=== PATIENT | female | born 1965 | race Caucasian/White ===

== ENCOUNTER 2017-01-14 19:55 | Emergency (ER) | payer MEDICAID ==
[~2017-01-14] VITALS: Ht 157.5 cm; Wt 51.3 kg
--- NOTE | 2017-01-14 20:32 | NUR ---
PT TO ER BED 12. C/O LT FLANK PAIN W/ DYSURIA AND URGENCY THAT STARTED THIS AM. GOWNED AND PLACED ON MONITOR. STABLE VS. AWAITING MD DICKSON.
--- NOTE | 2017-01-14 20:36 | NUR ---
DR STRAUSS AT BEDSIDE FOR EVAL.
[2017-01-14 20:54] LABS: APPEARANCE,URINE Clear (CLEAR); BILIRUBIN,URINE Negative (NEGATIVE); BLOOD, URINE Trace-intact Ery/uL (NEGATIVE); COLOR,URINE Yellow (YELLOW); KETONES,URINE Negative (NEGATIVE); LEUKOCYTE ESTERASE ,URINE Moderate (NEGATIVE); NITRITE, URINE Negative (NEGATIVE); PH,URINE 6.5 (5.0-8.0); PROTEIN,URINE Negative (NEGATIVE); UGLUCOSE Negative (NEGATIVE); UROBILINOGEN,URINE 0.2 EU/dL (0.2)
[2017-01-14] MEDS ORDERED: KETOROLAC TROMETHAMINE INJ 30 MG/ML VIAL IV ONE (21:00)
[2017-01-14 21:09] LABS: BASOPHILS % (AUTO) 0.5 % (0.0-2.0); EOSINOPHILS # (AUTO) 0.2 /CMM (0.0-0.7); EOSINOPHILS % (AUTO) 2.7 % (0.0-6.0); HEMATOCRIT 40 % (33-45); HEMOGLOBIN 13.5 g/dL (11.5-14.8); LYMPHOCYTES # (AUTO) 1.6 /CMM (0.8-4.8); LYMPHOCYTES % (AUTO) 28.7 % (20.0-44.0); MEAN CORPUSCULAR HEMOGLOBIN 29 PG (26.0-33.0); MEAN CORPUSCULAR HGB CONC 34 g/dl (31.0-36.0); MEAN CORPUSCULAR VOLUME 86 fL (82-100); MONOCYTES # (AUTO) 0.7 /CMM (0.1-1.30); NEUTROPHILS # (AUTO) 3.2 /CMM (1.8-8.9); NEUTROPHILS % (AUTO) 56.1 % (43.0-81.0); PLATELET COUNT (AUTO) 252 /CMM (150-450); RDW COEFFICIENT OF VARIATION 12.5 (11.5-15.0); WHITE BLOOD COUNT (AUTO) 5.7 K/uL (4.3-11.0)
[2017-01-14] MEDS ORDERED: KETOROLAC TROMETHAMINE INJ 30 MG/ML VIAL ONE (21:09)
--- NOTE | 2017-01-14 21:10 | NUR ---
PT TO RADIOLOGY FOR ABDOMINAL CT SCAN VIA WHEELCHAIR.
[2017-01-14 21:15] LABS: ADD URINE CULTURE YES; BACTERIA,URINE Few /HPF (None Seen); SQUAMOUS EPITHELIAL CELL,UR Few /HPF (None Seen)
[2017-01-14 21:16] LABS: CALCIUM, SERUM 9.2 mg/dL (8.5-10.1); CREATININE 0.7 mg/dL (0.6-1.3); POTASSIUM 4.1 mmol/L (3.5-5.1)
[2017-01-14 21:23] LABS: ALBUMIN 3.9 g/dL (3.4-5.0); BILIRUBIN,DIRECT 0.1 mg/dL (0.0-0.2); BILIRUBIN,TOTAL 0.4 mg/dL (0.2-1.0); TOTAL PROTEIN, SERUM 6.4 g/dL (6.4-8.2)
--- NOTE | 2017-01-14 22:10 | NUR ---
Patient discharged to home in stable condition. Written and verbal after care instructions given. Patient verbalizes understanding of instruction.IV removed. Catheter intact and site benign. Pressure and 4x4 applied to site. No bleeding noted.
[2017-01-14 22:11] VITALS: BP 121/77
== END 2017-01-14 22:12 | disposition home or self-care (01) ==
LOC: ER 19:57
DX: N23 Unspecified renal colic (principal); N39.0 Urinary tract infection, site not specified; E11.9 Type 2 diabetes mellitus without complications; I48.91 Unspecified atrial fibrillation; Z85.42 Personal history of malignant neoplasm of other parts of uterus; Z90.710 Acquired absence of both cervix and uterus; Z96.641 Presence of right artificial hip joint; Z88.2 Allergy status to sulfonamides
CPT/HCPCS: 36415; 74176; 80048; 80076; 81001; 83690; 85025; 87086; 99285; A4606; J1885; Z7610; 81000-TC

== ENCOUNTER → 2017-05-27 | Emergency (ER) | payer MEDICAID ==
[~2017-05-27] VITALS: Ht 157.5 cm; Wt 54.4 kg
[2017-05-27 17:32] VITALS: BP 114/74
== END | disposition home or self-care (01) ==
LOC: ER 17:29
DX: S93.401A Sprain of unspecified ligament of right ankle, initial encounter (principal); E11.9 Type 2 diabetes mellitus without complications; G35 Multiple sclerosis; I48.91 Unspecified atrial fibrillation; M85.80 Other specified disorders of bone density and structure, unspecified site; Z85.89 Personal history of malignant neoplasm of other organs and systems; Z88.2 Allergy status to sulfonamides; W18.39XA Other fall on same level, initial encounter; Y93.89 Activity, other specified; Y92.89 Other specified places as the place of occurrence of the external cause; Y99.9 Unspecified external cause status
CPT/HCPCS: 73610-TC; A4606; Z7610

== ENCOUNTER 2017-05-29 19:31 | Emergency (ER) | payer MEDICAID ==
[~2017-05-29] VITALS: Ht 157.5 cm; Wt 63.5 kg
[2017-05-29 20:11] VITALS: BP 117/75
--- NOTE | 2017-05-29 21:27 | NUR ---
INFORMED BY ADMITIING "PT LEFT"
== END 2017-05-29 21:28 | disposition left against medical advice (07) ==
LOC: ER 19:36
DX: Z53.21 Procedure and treatment not carried out due to patient leaving prior to being seen by health care provider (principal)
CPT/HCPCS: A4606; Z7610

== ENCOUNTER 2020-03-30 22:33 | Emergency (ER) | payer MEDICAID ==
[~2020-03-30] VITALS: Ht 157.5 cm; Wt 63.5 kg
--- NOTE | 2020-03-30 22:45 | NUR ---
[facility] [phone]
--- NOTE | 2020-03-30 22:50 | NUR ---
PT BIBA TO THE ED C/O LOWER ABDOMINAL PAIN S/P TRANSURETHRAL RESECTION TODAY AT [facility]. PT AAOX4, VSS, RESPIRATIONS EVEN AND UNLABORED ON RA W/ NAD NOTED. -N/V. PT CONNECTED TO THE MONITOR AND POX
[2020-03-30] MEDS ORDERED: HYDROMORPHONE INJ 0.5 MG/0.5 ML SYRINGE IM ONE (23:00)
[2020-03-30] MEDS ORDERED: ONDANSETRON 4 MG TAB.RAPDIS PO ONE (23:00)
[2020-03-30] MEDS ORDERED: MORPHINE SULFATE INJ 4 MG/ML DISP.SYRIN ONE (23:12)
[2020-03-30] MEDS ORDERED: ONDANSETRON 4 MG TAB.RAPDIS ONE (23:12)
--- NOTE | 2020-03-30 23:17 | NUR ---
SUTTON CATHETER IN PLACE. 16 F. URINE OUTPUT:720 ML
[2020-03-30] MEDS ORDERED: MORPHINE SULFATE INJ 2 MG/ML DISP.SYRIN IM ONE (23:30)
--- NOTE | 2020-03-30 23:46 | NUR ---
URINE OUTPUT: 900 ML
[2020-03-30 23:52] LABS: APPEARANCE,URINE Clear (CLEAR); BILIRUBIN,URINE Negative (NEGATIVE); BLOOD, URINE Moderate Ery/uL (NEGATIVE); COLOR,URINE Yellow (YELLOW); KETONES,URINE Negative (NEGATIVE); LEUKOCYTE ESTERASE ,URINE Trace (NEGATIVE); NITRITE, URINE Negative (NEGATIVE); PH,URINE 7.5 (5.0-8.0); PROTEIN,URINE 100 mg/dl (NEGATIVE); UGLUCOSE Negative (NEGATIVE); UROBILINOGEN,URINE 0.2 EU/dL (0.2)
[2020-03-30 23:57] LABS: BACTERIA,URINE Few /HPF (None Seen); SQUAMOUS EPITHELIAL CELL,UR Few /HPF (None Seen)
[2020-03-31] MEDS ORDERED: ONDANSETRON 4 MG TAB.RAPDIS ONE (00:28)
[2020-03-31] MEDS ORDERED: ONDANSETRON 4 MG TAB.RAPDIS SL ONE (00:30)
--- NOTE | 2020-03-31 02:34 | NUR ---
Patient discharged to home in stable condition. Written and verbal after care instructions given. Patient verbalizes understanding of instruction.
[2020-03-31 02:35] VITALS: BP 121/87
== END 2020-03-31 02:35 | disposition home or self-care (01) ==
LOC: ER 22:37
DX: N39.0 Urinary tract infection, site not specified (principal); R33.9 Retention of urine, unspecified; G35 Multiple sclerosis; I48.91 Unspecified atrial fibrillation; E11.9 Type 2 diabetes mellitus without complications; Z98.890 Other specified postprocedural states; Z88.2 Allergy status to sulfonamides; Z85.51 Personal history of malignant neoplasm of bladder
CPT/HCPCS: 51702; 81001; 96372; 99284; J2270; Q0162 ×2; 81000-TC

== ENCOUNTER 2020-08-25 18:15 | Inpatient (IN) | payer MEDICAID ==
[~2020-08-25] VITALS: Ht 157.5 cm; Wt 117.9 kg
[~2020-08-25 18:15] MED LIST: ACET-868 PO; ACID1TAB12 PO; ASCO500T87 PO; ASPI-1169 PO; ATOR20TA PO; CALC-261 PO; CHOL200059 PO; CYAN500T66 PO; CYCL5TAB PO; DALF10TA PO; DOCU250C21 PO; GABA-534 PO; HYDR-4384 PO; MAGN400T8 PO; MEMA5TAB PO; MODA200T22 PO; OMEG10006 PO; RANI150T8 PO; VITA400C68 PO
--- NOTE | 2020-08-25 18:18 | NUR ---
[id number] from home, c/o weakness and L shoulder pain s/p glf 2 weeks ago, states "clavicular fracture" when she fell 2 weeks ago. to ER bed 9, hooked to cardiac BP cuff and POX, changed to hosp gown, warm blanket provided, patient AAO x 3, breathing even and unlabored, NAD noted. Dr Ozuna at bedside
--- NOTE | 2020-08-25 18:27 | NUR ---
pt [id number] from home to er bed 09 c/o weakness, L shoulder/clavicular pain since injuring herself and sustaining a clavicular fracture 2 weeks ago. since then she's been having frequent falls and is feeling not safe by herself. pt gowned and placed on monitor. stable vitals. awaiting md hopkins.
--- NOTE | 2020-08-25 18:27 | NUR ---
Note tonioone in EDM - 08/25/20 at 1913 by HORTENCIA [email or web address] from home, c/o weakness and L shoulder pain s/p glf 2 weeks ago, states "clavicular fracture" when she fell 2 weeks ago. to ER bed 9, hooked to cardiac BP cuff and POX, changed to hosp gown, warm blanket provided, patient AAO x 3, breathing even and unlabored, NAD noted. awaiting MD hopkins.
--- NOTE | 2020-08-25 18:28 | NUR ---
dr duff at bedside for eval.
[2020-08-25] MEDS ORDERED: IV NS 0.9% 500 ML BAG IV ONE (18:30)
[2020-08-25] MEDS ORDERED: CALC-1026 PO (18:38)
[2020-08-25] MEDS ORDERED: ASCO500C17 PO (18:38)
[2020-08-25] MEDS ORDERED: CHOL200013 PO (18:38)
[2020-08-25] MEDS ORDERED: SIMV10TA98 PO (18:38)
--- NOTE | 2020-08-25 19:04 | NUR ---
iv line started blood drawn and sent to lab.
[2020-08-25 19:26] LABS: EOSINOPHILS % (AUTO) 3.6 % (0.0-6.0); HEMATOCRIT 42 % (33-45); HEMOGLOBIN 13.5 g/dL (11.5-14.8); LYMPHOCYTES # (AUTO) 2.6 /CMM (0.8-4.8); LYMPHOCYTES % (AUTO) 32.4 % (20.0-44.0); MEAN CORPUSCULAR HGB CONC 32 g/dl (31.0-36.0); MEAN CORPUSCULAR VOLUME 87 fL (82-100); MONOCYTES # (AUTO) 0.7 /CMM (0.1-1.30); MONOCYTES % (AUTO) 8.8 % (2.0-12.0); NEUTROPHILS # (AUTO) 4.4 /CMM (1.8-8.9); NEUTROPHILS % (AUTO) 55.2 % (43.0-81.0); PLATELET COUNT (AUTO) 280 /CMM (150-450); RED BLOOD CELL COUNT(AUTO) 4.81 MIL/uL (4.0-5.2); WHITE BLOOD COUNT (AUTO) 7.9 K/uL (4.3-11.0)
--- NOTE | 2020-08-25 19:39 | NUR ---
CALLED LAB FOR COVID SWAB
[2020-08-25 19:44] LABS: ALANINE AMINOTRANSFERASE 44 U/L (12-78); ALBUMIN 3.3 g/dL (3.4-5.0); ALKALINE PHOSPHATASE 93 U/L (46-116); ASPARTATE AMINOTRANSFERASE 19 U/L (15-37); BILIRUBIN,DIRECT 0.1 mg/dL (0.0-0.2); BILIRUBIN,TOTAL 0.1 mg/dL (0.2-1.0); CALCIUM, SERUM 9.1 mg/dL (8.5-10.1); CARBON DIOXIDE 29 mmol/L (21-32); CHLORIDE 106 mmol/L (98-107); GLUCOSE 112 mg/dL (74-106); POTASSIUM 3.9 mmol/L (3.5-5.1); SODIUM SERUM 143 mmol/L (136-145)
[2020-08-25 19:49] LABS: UREA NITROGEN, BLOOD 24 mg/dL (7-18)
--- NOTE | 2020-08-25 20:10 | NUR ---
COVID SWAB COLLECTED AND SENT TO THE LAB.
[2020-08-25 20:31] LABS: BAND % (MANUAL) 1 % (0.0-5.0); EOSINOPHILS % (MANUAL) 3 % (0-4); LYMPHOCYTES % (MANUAL) 36 % (16-48); MONOCYTES % (MANUAL) 4 % (0-11.0); NEUTROPHILS % (MANUAL) 53 (42-76); REACTIVE LYMPHOCYTES 3 % (0-0)
[2020-08-25] MEDS ORDERED: ZOLPIDEM TARTRATE 5 MG TABLET PO PRN (21:00)
[2020-08-25] MEDS ORDERED: Z GUARD REMEDY 2 OZ OINT TP PRN (21:00)
[2020-08-25] MEDS ORDERED: ONDANSETRON HCL/PF 4 MG/2 ML VIAL IVP PRN (21:00)
[2020-08-25] MEDS ORDERED: ACETAMINOPHEN 325 MG TABLET PO PRN (21:00)
[2020-08-25] MEDS ORDERED: HYDROCODONE/APAP 5/325MG TABLET PO PRN (21:00)
[2020-08-25] MEDS ORDERED: MAG HYDROX/AL HYDROX/SIMETH 30 ML UDC PO PRN (21:00)
--- NOTE | 2020-08-25 21:09 | NUR ---
ER SPOKE TO [facility] REGARDING PT ADMISSION.
--- NOTE | 2020-08-25 21:16 | NUR ---
LAB CALLED REGARDING NEGATIVE COVID RESULT.
--- NOTE | 2020-08-25 21:33 | NUR ---
M/S 313-2
--- NOTE | 2020-08-25 21:59 | NUR ---
REPORT CALLED TO M/S JALIL LYONS. WILL TRANSPORT PT TO ROOM 313-2.
[2020-08-25] MEDS: SIMVASTATIN 10 MG TABLET PO SCH (22:00)
--- NOTE | 2020-08-25 22:15 | NUR ---
RN NOTES: MD STUDENT RECRUITER CURRENTLY IN THE PT'S ROOM INTERVIEWING PT, PERFORMING H&P, DISCUSSING PLAN OF CARE TO PT. PT AGREE AND UNDERSTAND.
--- NOTE | 2020-08-25 22:16 | NUR ---
PATIENT TAKEN UP TO ASSIGNED ROOM FOR MALINDA.
[2020-08-25 22:31] VITALS: BP 127/75
--- NOTE | 2020-08-25 22:52 | NUR ---
non admin atorvastatin: pt refused taking medication at this time, stated she doesn't feel the need to take it now, education provided to pt. pt refused.
--- NOTE | 2020-08-25 23:00 | NUR ---
ADMISSION NOTES: RECEIVED REPORT FROM SILVA UX RESEARCH ASSOCIATE. PT BROUGHT TO THE UNIT VIA [employer] ARRIVED IN THE UNIT AT 2208. PT ADMITTED FROM HOME, LIVES BY HERSELF. PT C/O WEAKNESS S/P FALL OBTAINED LEFT CLAVICLE FRACTURE 2WEEKS AGO. PT A/O X4, ON RA RESPIRATIONS EVEN AND UNLABORED. IV ACCESS PATENT AND FLUSHING WELL, ON HL. INVENTORY OF [id number] COMPLETED BY ELLEN WILSON AND RN. BED BATH PROVIDED TO PT PT STATED SHE HASN'T TAKEN A SHOWER FOR 2WEEKS NOW. ALL ADMISSION INTERVIEWS COMPLETED, ALL INFO PROVIDED BY PT. FLU VACCINE RECEIVED ON JUL 2020. PER PT LAST TIME SHE SEEN HER PCP WAS 07/11/2020. PT HAS RIGHT HIP METAL IMPLANT S/P RIGHT HIP SX. ALL HOME MEDS RECONCILED BY . OFFERED PAIN MEDICATION BUT PT REFUSED, STATED SHE DOESN'T WANT IT. EDUCATION PROVIDED TO PT. SNACKS PROVIDED TO PT AND CONSUMED 100%. SAFETY PRECAUTIONS FOR FALL INITIATED, CALL LIGHT IN REACH, WILL CONTINUE MONITORING PT.
[2020-08-25] MEDS: IV D5/0.45 NACL 1,000 ML IV PRN (23:10)
[2020-08-26] MEDS ORDERED: CIPROFLOXACIN HCL 250 MG TABLET PO SCH (00:25)
--- NOTE | 2020-08-26 00:39 | NUR ---
RN NOTES: MADE MD AWARE OF VTE SCORE, AWAITING FOR MD ORDER.
--- NOTE | 2020-08-26 00:47 | NUR ---
RN NOTES: CIPRO TABLET NOT AVAILABLE ON BOTH [facility] [employer].
[2020-08-26] MEDS ORDERED: CIPROFLOXACIN HCL 500 MG TABLET ONE (01:14)
--- NOTE | 2020-08-26 01:16 | NUR ---
RN NOTES: NO CIPRO 250MG TAB AVAILABLE IN [facility], ONLY 500 MG. MED OVERRIDE BY JALIL SILVA.
[2020-08-26] MEDS: CIPROFLOXACIN HCL 500 MG TABLET PO SCH ×2 (01:35→22:45)
--- NOTE | 2020-08-26 01:36 | NUR ---
rn notes/cipro: pharmacist hotel front desk clerk, vince verified medication, but timed as 0900am and 2100. relayed to md, per md to give initial dose of cipro now.
[2020-08-26 06:36] LABS: BASOPHILS % (AUTO) 0.1 % (0.0-2.0); EOSINOPHILS % (AUTO) 4.6 % (0.0-6.0); HEMATOCRIT 41 % (33-45); HEMOGLOBIN 13.2 g/dL (11.5-14.8); LYMPHOCYTES # (AUTO) 2.4 /CMM (0.8-4.8); LYMPHOCYTES % (AUTO) 31.3 % (20.0-44.0); MEAN CORPUSCULAR HGB CONC 33 g/dl (31.0-36.0); MEAN CORPUSCULAR VOLUME 87 fL (82-100); MONOCYTES # (AUTO) 0.7 /CMM (0.1-1.30); MONOCYTES % (AUTO) 8.8 % (2.0-12.0); NEUTROPHILS # (AUTO) 4.3 /CMM (1.8-8.9); NEUTROPHILS % (AUTO) 55.2 % (43.0-81.0); PLATELET COUNT (AUTO) 253 /CMM (150-450); RED BLOOD CELL COUNT(AUTO) 4.69 MIL/uL (4.0-5.2); WHITE BLOOD COUNT (AUTO) 7.8 K/uL (4.3-11.0)
--- NOTE | 2020-08-26 06:46 | NUR ---
end of shift report: pt remains a/o x4, refused prn pain medication stated she doesn't like taking a lot of medication. iv access patent and flushing well, infusing with d5 1/2 ns at 80ml/hr, no s/s of iv infiltration noted. PLAN OF CARE: PT eval, CM and Social svc consult for placement, continue iv hydration and po atb. Safety precautions for fall remains engaged, call light in reach, will endorse to day rn for continuity of care.
[2020-08-26 07:02] LABS: ALBUMIN 2.9 g/dL (3.4-5.0); BILIRUBIN,TOTAL 0.3 mg/dL (0.2-1.0); CALCIUM, SERUM 8.2 mg/dL (8.5-10.1); CREATININE 0.9 mg/dL (0.6-1.3); MAGNESIUM 2.2 mg/dL (1.8-2.4); PHOSPHORUS 4.8 mg/dL (2.5-4.9); POTASSIUM 3.8 mmol/L (3.5-5.1); TOTAL PROTEIN, SERUM 5.3 g/dL (6.4-8.2)
--- NOTE | 2020-08-26 07:33 | NUR ---
MS/RN OPENING NOTES RECEIVED PATIENT ON BED AWAKE ALERT AND ORIENTED X4. PATIENT DENIES PAIN AT THIS TIME. PATIENT IN NO APPARENT RESPIRATORY DISTRESS NOTED. WILL CONTINUE TO MONITOR.
[2020-08-26 08:02] VITALS: BP 112/69
[2020-08-26] MEDS: CALCIUM CARBONATE (1250) 500 MG TABLET PO SCH (09:18)
[2020-08-26] MEDS: CHOLECALCIFEROL 1,000 UNIT TABLET (VIT D3) PO SCH (09:18)
[2020-08-26] MEDS: ASCORBIC ACID 500 MG TABLET PO SCH (09:18)
[2020-08-26 16:00] VITALS: BP 100/59
[2020-08-26 16:07] VITALS: BP 100/59
[2020-08-26] MEDS: IV D5/0.45 NACL 1,000 ML IV PRN (17:30)
--- NOTE | 2020-08-26 17:58 | NUR ---
MS/RN NOTES DR. FLORES IS AWARE FOR VTE SCORE 4. NO NEW ORDER AT THIS TIME.
--- NOTE | 2020-08-26 18:58 | NUR ---
MS/RN CLOSING NOTES PATIENT IS ON BED. ALERT AND ORIENTED X4. DENIES PAIN AT THIS TIME.PATIENT IN NO APPARENT RESPIRATORY DISTRESS NOTED. IV ACCESS AT LEFT AC #22 G WITH IV FLUID OF D5 1/2 NS 1L AT 80 ML/HR ON AND INFUSING WELL. SEEN AND EXAMINED BY MD WITH ORDERS MADE AND CARRIED OUT. SAFETY PRECAUTION WAS IN PLACED. BED IN LOWEST POSITION AND LOCKED. SIDE RAIL UP X2. CALL LIGHT WITHIN REACH. WILL ENDORSED TO NAIL PROFESSIONAL FOR MALINDA.
--- NOTE | 2020-08-26 19:30 | NUR ---
MS/TELE/RN RECEIVED PATIENT AWAKE, ALERT, ORIENTED , COMFORTABLE, NO C/O PAIN, NO DISTRESS NOTED, CALL LIGHT IN REACH. WILL MONITOR.
[2020-08-26 22:17] LABS: BILIRUBIN,URINE NEGATIVE (NEGATIVE); BLOOD, URINE NEGATIVE Ery/uL (NEGATIVE); COLOR,URINE YELLOW (YELLOW); LEUKOCYTE ESTERASE ,URINE NEGATIVE (NEGATIVE); NITRITE, URINE POSITIVE (NEGATIVE); PROTEIN,URINE NEGATIVE (NEGATIVE); UGLUCOSE NEGATIVE (NEGATIVE); UROBILINOGEN,URINE 0.2 EU/dL (0.2)
[2020-08-26 22:45] LABS: BACTERIA,URINE 3+ /HPF (None Seen)
[2020-08-26] MEDS: SIMVASTATIN 10 MG TABLET PO SCH (22:45)
[2020-08-26 22:46] LABS: MUCUS,URINE Few /LPF (None Seen); SQUAMOUS EPITHELIAL CELL,UR Few /HPF (None Seen)
--- NOTE | 2020-08-27 01:00 | NUR ---
MS/TELE/RN PATIENT IS SLEEPING AT THIS TIME, APPEAR COMFORTABLE, NO SIGNS OF DISTRESS NOTED, CALL LIGHT IN REACH, WILL CONTINUE TO MONITOR.
[2020-08-27] MEDS: IV D5/0.45 NACL 1,000 ML IV PRN ×2 (05:14→20:05)
--- NOTE | 2020-08-27 06:30 | NUR ---
MS/TELE/RN PATIENT IS AWAKE AT THIS TIME, COMFORTABLE, NO C/O PAIN, NO DISTRESS NOTED, ALL NEEDS ATTENDED AT THIS TIME, CALL LIGHT IN REACH, WILL CONTINUE TO MONITOR.
--- NOTE | 2020-08-27 07:59 | NUR ---
MS/RN OPENING NOTE RECEIVED PATIENT FROM INSTRUMENTATION SUPERVISOR NURSE. A/O X4 ABLE TO VERBALIZE NEEDS. PATIENT ON ROOM AIR, TOLERATING WELL. BREATHING EVEN, NON LABORED, NO SOB NOTED. LAC #22 INTACT AND PATENT, NO SIGNS OF INFILTRATION, SWELLING, REDNESS, WARM TO TOUCH NOTED. IV FLUIDS RUNNING ORDERED. SAFETY MEASURES IN PLACE BED LOCKED AND IN LOWEST POSITION, BED ALARM ACTIVATED, CALL LIGHT WITHIN REACH. WILL CONTINUE TO MONITOR AND ENSURE SAFETY.
[2020-08-27 08:00] VITALS: BP_SYST 102; BP_SYST 104; BP_DIAS 62
[2020-08-27] MEDS: ASCORBIC ACID 500 MG TABLET PO SCH (08:51)
[2020-08-27] MEDS: CHOLECALCIFEROL 1,000 UNIT TABLET (VIT D3) PO SCH (08:51)
[2020-08-27] MEDS: CALCIUM CARBONATE (1250) 500 MG TABLET PO SCH (08:51)
[2020-08-27] MEDS: CIPROFLOXACIN HCL 500 MG TABLET PO SCH ×2 (08:51→21:20)
--- NOTE | 2020-08-27 12:20 | NUR ---
MS/RN NO PORK PATIENT REQUESTED TO HAVE NO PORK FOOD PRODUCTS. CONTACTED FNS WITH NEW PATIENT REQUEST.
--- NOTE | 2020-08-27 14:02 | NUR ---
MS/RN S/B DR. FLORES AWAITING PLACEMENT. D/C PLANNING FOR AM.
[2020-08-27 16:00] VITALS: BP 101/63
--- NOTE | 2020-08-27 19:24 | NUR ---
MS/RN CLOSING NOTE PATIENT REMAINS IN STABLE CONDITION. A/O X4 ABLE TO VERBALIZE NEEDS. PATIENT ON ROOM AIR, TOLERATING WELL. BREATHING EVEN, NON LABORED, NO SOB NOTED. LAC #22 INTACT AND PATENT, IVF MD ORDER. ALL NEEDS MET THROUGHOUT THE DAY. SAFETY MEASURES IN PLACE. WILL ENDORSE TO WOOD CUTTER NURSE.
--- NOTE | 2020-08-27 19:45 | NUR ---
MS3 RN NOTES: OPENING RECEIVED PATIENT IN THE BED A/O X4, NO ACUTE RESPIRATORY DISTRESS. BREATHING EVEN AND UNLABORED. NO SOB. NO PAIN AT THIS TIME. IV ACCESS ON LEFT AC INTACT FLUSHES WELL. NO REDNESS. PATIENT USING BEDSIDE COMMODE NEEDED.PT FALL RISK MONITORING PT FOR SAFETY. CALL LIGHT WITHIN TO REACH, SAFETY PRECAUTION MAINTAINED ALL THE TIME. CONTINUE TO MONITOR
[2020-08-27 20:36] VITALS: BP 125/73
[2020-08-27] MEDS: SIMVASTATIN 10 MG TABLET PO SCH (21:20)
--- NOTE | 2020-08-28 05:43 | NUR ---
MS/RN CLOSING NOTE PATIENT REMAINS IN STABLE CONDITION. A/0 X4 ABLE TO VERBALIZE NEEDS. PATIENT ON ROOM AIR, TOLERATING WELL. BREATHING EVEN, NON LABORED, NO SOB NOTED. IV SITE INTACT W/ NO REDNESS. NO PAIN MEDICATION REQUESTED. ALL NEEDS ATTENDED THROUGHOUT THE SHIFT.
--- NOTE | 2020-08-28 07:10 | NUR ---
MS RN OPENING NOTES RECEIVED PT RESTING IN BED AT THIS TIME. PT AOX4. PT ABLE TO VERBALIZE NEEDS. NO SOB NOTED, NO S/S OF ANY ACUTE DISTRESS NOTED. NO C/O PAIN AT THIS TIME. RESPIRATIONS ARE EVEN AND UNLABORED. PT IS STABLE ON RA. PT WEARS OWN CLAVICULAR BRACE. IV ACCESS NOTED IN LAC G# 22, INTACT, PATENT AND FLUSHING WELL. PT MADE AWARE TO CALL FOR ASSISTANCE. SAFETY PRECAUTION IN PLACE AND MAINTAINED AT ALL TIMES. BED IN LOWEST LOCKED POSITION, HOB ELEVATED, SIDE RAILS UP X 2, CALL LIGHT AND TABLE WITHIN REACH. WILL CONTINUE TO MONITOR.
[2020-08-28 08:00] VITALS: BP 111/77
[2020-08-28] MEDS: IV D5/0.45 NACL 1,000 ML IV PRN (09:17)
[2020-08-28] MEDS: ASCORBIC ACID 500 MG TABLET PO SCH (09:23)
--- NOTE | 2020-08-28 09:23 | NUR ---
PT C/O OF STOMACH DISCOMFORT AND BLOATING. PER PATIENT REQUEST MAALOX 30,L Q6H PRN FOR DYSPEPSIA WAS ADMINISTERED AT THIS TIME. WILL CONTINUE TO MONITOR
[2020-08-28] MEDS: CHOLECALCIFEROL 1,000 UNIT TABLET (VIT D3) PO SCH (09:24)
[2020-08-28] MEDS: CIPROFLOXACIN HCL 500 MG TABLET PO SCH ×2 (09:24→20:59)
[2020-08-28] MEDS: CALCIUM CARBONATE (1250) 500 MG TABLET PO SCH (09:24)
--- NOTE | 2020-08-28 12:24 | NUR ---
LEXIE and Case Management conducted a conference call with the patient and patient's brother Kristie . Science Tutor Yashira educated the patient and patient's brother regarding placement options for the patient. Patient was not agreeable to placement options and Science Tutor Yashira will follow-up with the patient and patient's brother again. LEXIE followed-up with Shi (patient national sales representative [facility]) regarding patient's request of Medicare/Medi-[employer]. Per Shi, Shi will follow-up with the patient. LEXIE remains available for all needs regarding this patient.
[2020-08-28] MEDS ORDERED: CIPR500T5 PO (13:32)
--- NOTE | 2020-08-28 14:05 | NUR ---
SW and Case Management conducted a conference call with the patient and patient's brother Kristie . Certified Ethical Hacker Yashira followed up with patient and patient's brother with regarding placement. Patient refused [facility]. Certified Ethical Hacker Yashira will follow-up with home health for a safe and proper discharge. SW to remain available for all needs regarding this patient.
--- NOTE | 2020-08-28 14:18 | NUR ---
LEXIE spoke to Shi, Patient Industrial Engineering Director with [facility] regarding this patient. Shi informed this SW that Shi would follow-up with the patient. LEXIE provided Shi with patient's personal phone . LEXIE remains available for all needs regarding this patient.
[2020-08-28 16:00] VITALS: BP 115/70
[2020-08-28] MEDS: MAGNESIUM HYDROXIDE 30 ML UDC PO PRN ×2 (18:02→23:10)
--- NOTE | 2020-08-28 18:05 | NUR ---
PT C/O OF CONSTIPATION, FRANNY CHARGE NURSE REQUESTED TO ADMINISTER MOM MILK OF MAGNESIA. MOM MILK OF MAGNESIA 30ML PO HS PRN FOR CONSTIPATION ADMINISTERED AT THIS TIME. WILL CONTINUE TO MONITOR
--- NOTE | 2020-08-28 18:29 | NUR ---
PT'S BROTHER CLIFFORD PARKER ([phone]) UPDATED ON PT'S CONDITION. PT'S BROTHER ASKED TO BE CONTACTED BY , ALSO REQUESTED FOR MAG CITRATE AND BLADDER SCAN. FRANNY CHARGE NURSE MADE AWARE AND DR FLORES MADE AWARE. ORDERS RECEIVED FOR MAG CITRATE AND CARRIED OUT. WILL CONTINUE TO MONITOR
[2020-08-28] MEDS ORDERED: MAGNESIUM CITRATE 296 ML BOTTLE PO ONE (18:30)
--- NOTE | 2020-08-28 18:35 | NUR ---
BLADDER SCAN SHOWED 72ML OF POST RESIDUAL OUTPUT. WILL CONTINUE TO MONITOR
--- NOTE | 2020-08-28 19:06 | NUR ---
MS RN CLOSING NOTES PT AWAKE IN BED AT THIS TIME. PT REMAINED STABLE THROUGHOUT SHIFT. ALL CARE, NEED, MEDICATIONS AND TREATMENT ADMINISTERED ANTICIPATED PER ORDER. PT HAD 3 SMALL BM. PT ASSISTED TO BEDSIDE COMMODE. SAFETY PRECAUTION IN PLACE AND MAINTAINED AT ALL TIMES. BED IN LOWEST LOCKED POSITION, HOB ELEVATED, SIDE RAILS UP X 2, CALL LIGHT AND TABLE WITHIN REACH. WILL CONTINUE TO MONITOR.
[2020-08-28 20:00] VITALS: BP 117/83
--- NOTE | 2020-08-28 20:00 | NUR ---
Received report from AM nurse. Patient in bed resting comfortably. Patient awake, alert, and oriented x4. Able to make needs known. Noted IV access left AC 18 gauge, patent, no redness, or infiltration, infusing D5 1/2NS@80mL/hr. Safety measure is in place, bed is in the lowest level, bed is locked, alarm is on, side rails x2 are up, and call light is within reach. Will continue to monitor.
--- NOTE | 2020-08-28 20:25 | NUR ---
Patient had a BM, 5 hard round BM, dark brown. Offered discharged paperwork but she said she would not sign until she consulted her brother.
--- NOTE | 2020-08-28 20:28 | NUR ---
I spoke to her brother and he advised her not to sign the discharge paperwork because she did not have a proper BM. He was concerned that if she went home, she will have more problems.
--- NOTE | 2020-08-28 20:31 | NUR ---
Notified Gunnar JAVIER that patient had a BM, 5 round hard, dark brown stool. Offered discharge paperwork to patient but she refused to sign it. I spoke to patients brother on the phone and he advised patient not to sign paperwork because she did not have a proper BM and that he was concerned that she will have problems once she is back home. Waiting for orders.
--- NOTE | 2020-08-28 20:48 | NUR ---
In regards to the BM with 5 small round hard brown BM, made MD aware, no orders at this time.
[2020-08-28] MEDS: SIMVASTATIN 10 MG TABLET PO SCH (21:00)
--- NOTE | 2020-08-28 21:00 | NUR ---
Patient complains of Nausea. Administered PRN Zofran per MD order. Will continue to monitor.
--- NOTE | 2020-08-28 23:10 | NUR ---
Patient complains of constipation. Requested milk of magnesia. Administered Milk of Magnesia per MD order. Will continue to monitor.
[2020-08-29] MEDS: IV D5/0.45 NACL 1,000 ML IV PRN (04:51)
--- NOTE | 2020-08-29 07:23 | NUR ---
MS RN OPENING NOTES RECEIVED PT AWAKE IN BED IN NO ACUTE SIGNS OF DISTRESS. AOX4. ABLE TO VERBALIZE NEEDS., DENIES PAIN OR ANY DISCOMFORTS AT THIS TIME. ON ROOM AIR, RESPIRATIONS ARE EVEN AND UNLABORED. IV ACCESS NOTED IN LAC G# 22 WITH IVF OF D5 1/2 NS @ 80ML/HR INFUSING WELL, NO S/S OF INFILTRATION NOTED AT SITE. SAFETY PRECAUTIONS IN PLACE: BED IN LOWEST LOCKED POSITION, SIDE RAILS UP X 2, CALL LIGHT AND BEDSIDE TABLE WITHIN EASY REACH OF PT. WILL CONTINUE TO MONITOR.
--- NOTE | 2020-08-29 07:29 | NUR ---
RN CLOSING NOTE: Patient in bed resting comfortably. Patient is breathing even and unlabored. No SOB or acute respiratory distress noted. Safety precaution maintained, bed is in the lowest level, bed is locked, alarm is on, side rails x2 are up, and call light is within reach. Will endorse to AM nurse for continuity of care.
[2020-08-29 08:08] VITALS: BP 98/63
[2020-08-29] MEDS: CHOLECALCIFEROL 1,000 UNIT TABLET (VIT D3) PO SCH (08:43)
[2020-08-29] MEDS: CALCIUM CARBONATE (1250) 500 MG TABLET PO SCH (08:43)
[2020-08-29] MEDS: ASCORBIC ACID 500 MG TABLET PO SCH (08:43)
[2020-08-29] MEDS: CIPROFLOXACIN HCL 500 MG TABLET PO SCH (08:44)
--- NOTE | 2020-08-29 09:29 | NUR ---
RN NOTES CALLED SHANI REGARDING FINAL RESULTS AND C & S, SPOKE TO ANJALI AND SAID RESULTS IS NOT IN YET. WILL FOLLOW-UP LATER AGAIN.
[2020-08-29] MEDS ORDERED: BISACODYL SUPP (10 MG) 10 MG/SUPP.RECT SUPP.RECT RC ONE (11:39)
[2020-08-29] MEDS ORDERED: NITR100C PO (12:57)
[2020-08-29] MEDS ORDERED: SENN1TAB6 PO (13:02)
--- NOTE | 2020-08-29 13:32 | NUR ---
RN NOTES PT C/O CONSTIPATION, CLINICAL LAB SCIENTIST BAN MADE AWARE WITH ORDER TO GIVE BISACODYL SUPPOSITORY AND CARRIED OUT. WILL CONTINUE TO MONITOR.,
--- NOTE | 2020-08-29 15:01 | NUR ---
RN NOTES PT HAD LARGE SOFT FORM BOWEL MOVEMENT X1 AFTER BISACODYL SUPPOSITORY ADMINISTERED. MOUSTAPHA CEVALLOS MADE AWARE. WILL CONTINUE TO MONITOR.
[2020-08-29 16:18] VITALS: BP 112/70
--- NOTE | 2020-08-29 18:50 | NUR ---
MS RN CLOSING NOTES PT RESTING IN BED WATCHING TV AT THIS TIME. A/O X4. ABLE TO MAKE NEEDS KNOWN. ON ROOM AIR, RESPIRATIONS ARE EVEN AND UNLABORED, NO SOB NOTED THROUGHOUT THE DAY. IV ACCESS ON LAC G# 22 INTACT AND PATENT WITH IVF OF D5 1/2 NS @ 80ML/HR INFUSING WELL, NO S/S OF INFILTRATION NOTED AT SITE. ALL NEEDS NAD CARE ATTENDED WELL. SAFETY PRECAUTIONS IN PLACE: BED IN LOWEST LOCKED POSITION, SIDE RAILS UP X 2, CALL LIGHT AND BEDSIDE TABLE WITHIN EASY REACH OF PT. PT FOR DISCHARGED HOME NEY WHITE TIME IS 1930. WILL ENDORSE TO AIRPORT PLANNER NURSE.
--- NOTE | 2020-08-29 19:05 | NUR ---
rn ms opening notes received patient in bed awake alert and oriented x4,respirations even and unlabored with equal rise and fall of chest denies any pain or discomfort at this time, patient is scheduled for discharge to home and aware, remains comfortable at this time, oriented to staff and call light and kept within reach, safety and fall precautions rendered low bed and locked, all needs attended at this time, will continue to monitor and attend to needs.
[2020-08-29 19:42] VITALS: BP 106/57
--- NOTE | 2020-08-29 19:42 | NUR ---
rn ms discharge notes patient in bed awake alert and oriented x4,respirations even and unlabored with equal rise and fall of chest denies any pain or discomfort at this time, patient discharged to home transported by 2 ccna safely sat in the [facility], in stable condition, vs wnl,remains comfortable at this time, all belongings sent with patient discharge exit care given to patient, safety and fall precautions rendered all needs attended at this time, iv site and id band removed. left unit at 1942 in stable condition
== END 2020-08-29 19:45 | disposition home health service (06) | DRG 463 ==
LOC: ER 18:33 → MED 21:44
PROVIDERS: ADMIT Nurse Practitioner Acute Care
DX: N39.0 Urinary tract infection, site not specified (principal); G35 Multiple sclerosis; I48.91 Unspecified atrial fibrillation; E78.5 Hyperlipidemia, unspecified; I10 Essential (primary) hypertension; W18.30XA Fall on same level, unspecified, initial encounter; Z87.440 Personal history of urinary (tract) infections; S42.001A Fracture of unspecified part of right clavicle, initial encounter for closed fracture; Z85.51 Personal history of malignant neoplasm of bladder; Z87.820 Personal history of traumatic brain injury; R53.1 Weakness; B96.20 Unspecified Escherichia coli [E. coli] as the cause of diseases classified elsewhere; Y93.9 Activity, unspecified; Z16.12 Extended spectrum beta lactamase (ESBL) resistance; Z88.2 Allergy status to sulfonamides; Y92.009 Unspecified place in unspecified non-institutional (private) residence as the place of occurrence of the external cause; K59.09 Other constipation; E43 Unspecified severe protein-calorie malnutrition; Z68.42 Body mass index [BMI] 45.0-49.9, adult
CPT/HCPCS: 36415; 71045-TC; 80048-TC; 80053-TC; 80076-TC; 81001; 83735-TC; 84100-TC; 84484-TC; 85025-TC; 85730-TC; 86850-TC; 87081-TC; 87086-TC; 87186-TC; 97116-TC; 97530-TC; C9803; G0378; J2405; J3490; J7040

== ENCOUNTER 2021-01-10 00:49 | Inpatient (IN) | payer MEDICAID ==
[~2021-01-10] VITALS: Ht 157.5 cm; Wt 64.0 kg
[~2021-01-10 00:49] MED LIST changes: +ASCO500C17 PO; +CALC-1026 PO; +CHOL200013 PO; -CYAN500T66 PO; +CYAN500T72 PO; +NITR100C PO; +SENN1TAB6 PO; +SIMV10TA98 PO
--- NOTE | 2021-01-10 00:51 | NUR ---
PT AAOX4. AMBULATORY BIBRA FROM HOME C/P CHEST PAIN ON AND OFF. PT PLACED IN BED 2 ON MONITOR AND PULSE OX. NO ACUTE DISTRESS NOTED. PER GIVEN ASPIRIN 324 TOOL DISTRIBUTOR. PT PLACED ON SODA MAKER AND PULSE OX. AWAITING ER MD FOR EVAL AND ORDERS.
--- NOTE | 2021-01-10 01:00 | NUR ---
RAD AT BED SIDE
[2021-01-10] MEDS ORDERED: SENNOSIDES/DOCUSATE SODIUM 1 TAB TABLET PO PRN (01:30)
[2021-01-10] MEDS ORDERED: Z GUARD REMEDY 2 OZ OINT TP PRN (01:30)
[2021-01-10] MEDS ORDERED: ZOLPIDEM TARTRATE 5 MG TABLET PO PRN (01:30)
[2021-01-10] MEDS ORDERED: ONDANSETRON HCL/PF 4 MG/2 ML VIAL IVP PRN (01:30)
[2021-01-10] MEDS ORDERED: MAG HYDROX/AL HYDROX/SIMETH 30 ML UDC PO PRN (01:30)
[2021-01-10] MEDS ORDERED: MAGNESIUM HYDROXIDE 30 ML UDC PO PRN (01:30)
[2021-01-10] MEDS ORDERED: HYDROCODONE/APAP 5/325MG TABLET PO PRN (01:30)
[2021-01-10] MEDS ORDERED: ACETAMINOPHEN 325 MG TABLET PO PRN ×2 (01:30)
[2021-01-10 01:48] LABS: BASOPHILS % (AUTO) 0.4 % (0.0-2.0); EOSINOPHILS % (AUTO) 0.1 % (0.0-6.0); HEMATOCRIT 40 % (33-45); HEMOGLOBIN 13.2 g/dL (11.5-14.8); LYMPHOCYTES # (AUTO) 3.6 /CMM (0.8-4.8); MEAN CORPUSCULAR HGB CONC 33 g/dl (31.0-36.0); MEAN CORPUSCULAR VOLUME 86 fL (82-100); MONOCYTES # (AUTO) 1.1 /CMM (0.1-1.30); MONOCYTES % (AUTO) 10.4 % (2.0-12.0); NEUTROPHILS # (AUTO) 5.5 /CMM (1.8-8.9); NEUTROPHILS % (AUTO) 54.1 % (43.0-81.0); PLATELET COUNT (AUTO) 244 /CMM (150-450); RED BLOOD CELL COUNT(AUTO) 4.67 MIL/uL (4.0-5.2); WHITE BLOOD COUNT (AUTO) 10.2 K/uL (4.3-11.0)
[2021-01-10 01:59] LABS: CALCIUM, SERUM 8.3 mg/dL (8.5-10.1); CARBON DIOXIDE 28 mmol/L (21-32); CHLORIDE 110 mmol/L (98-107); CREATININE 1.1 mg/dL (0.6-1.3); GLUCOSE 103 mg/dL (74-106); POTASSIUM 3.8 mmol/L (3.5-5.1); SODIUM SERUM 146 mmol/L (136-145); UREA NITROGEN, BLOOD 33 mg/dL (7-18)
--- NOTE | 2021-01-10 02:10 | NUR ---
COVID ANTIGEN NEGATIVE
[2021-01-10 02:11] LABS: ALANINE AMINOTRANSFERASE 36 U/L (12-78); ALBUMIN 3.2 g/dL (3.4-5.0); ALKALINE PHOSPHATASE 114 U/L (46-116); ASPARTATE AMINOTRANSFERASE 21 U/L (15-37); B-TYPE NATRIURETIC PEPTIDE 632 PG/ML (0-125); BILIRUBIN,DIRECT 0.1 mg/dL (0.0-0.2); BILIRUBIN,TOTAL 0.2 mg/dL (0.2-1.0); TOTAL PROTEIN, SERUM 5.7 g/dL (6.4-8.2)
--- NOTE | 2021-01-10 02:36 | NUR ---
REPORT GIVEN TO GABI JIMENES FOR MALINDA
[2021-01-10 03:00] VITALS: BP 112/71
--- NOTE | 2021-01-10 03:09 | NUR ---
PT TRANSFERED PER ACLS PROTOCOL
--- NOTE | 2021-01-10 03:58 | NUR ---
TELERN RECEIVED FROM ER A 55 Y/O FEMALE WITH CC OF CP ALL DAY ON/OFF. A/O X4, NO SOB. 2L 02 MAINTAINED CLAIMS SHE FEELS DIZZY WHEN GOING TO RESTROOM. REFUSED BSC, NEEDS ASSISTANCE WHEN AMBULATING, GAIT UNSTEADY, LOWER EXT WEAK FROM MULTIPLE SCLEROSIS.ABLE TO PROVIDE EXTENSIVE MEDICAL HISTORY. SR ON THE MONITOR TO SB. DENIES ANY CP SINCE SHE ARRIVED IN ER. ORIENTED TO ROOM FACILITIES, CALL LIGHT WITHIN REACH SAFETY PRECAUTIONS EMPHASIZED, VERBALIZES UNDERSTANDING. CLOSELY WATCHED
[2021-01-10 04:00] VITALS: BP 124/75
[2021-01-10 05:47] VITALS: BP 124/75
--- NOTE | 2021-01-10 06:07 | NUR ---
TELERN REMAINS SB TO SR ON THE MONITOR, RESTING QUIETLY.
--- NOTE | 2021-01-10 07:30 | NUR ---
received pt. in am alert and oriented x4.engineering operations leader light edith. [place] calling freq.
[2021-01-10 07:59] LABS: MAGNESIUM 2.1 mg/dL (1.8-2.4); PHOSPHORUS 3.1 mg/dL (2.5-4.9)
[2021-01-10 08:00] VITALS: BP 102/72
[2021-01-10] MEDS ORDERED: Medication Not On Formulary EA (Omega-3 Fatty Acids (Omega-3) 1,000 MG) PO SCH (09:00)
[2021-01-10] MEDS ORDERED: ASCORBIC ACID 500 MG TABLET PO SCH (09:00)
[2021-01-10] MEDS ORDERED: CALCIUM CARBONATE (1250) 500 MG TABLET PO SCH (09:00)
[2021-01-10] MEDS ORDERED: CHOLECALCIFEROL 1,000 UNIT TABLET (VIT D3) PO SCH (09:00)
[2021-01-10] MEDS ORDERED: NITROFURANTOIN MACROCRYSTAL 100 MG CAPSULE PO SCH (09:00)
[2021-01-10] MEDS ORDERED: Medication Not On Formulary EA (Dalfampridine (Ampyra) 10 MG) PO SCH (09:00)
[2021-01-10] MEDS: DOCUSATE SODIUM 250 MG CAPSULE PO SCH ×3 (09:00→16:25)
[2021-01-10] MEDS: GABAPENTIN 300 MG CAPSULE PO SCH ×2 (09:00→09:54)
[2021-01-10] MEDS ORDERED: IOHEXOL-350 100 ML VIAL IV ONE (09:06)
[2021-01-10] MEDS ORDERED: IV NS 0.9% 250 ML IV ONE (09:06)
[2021-01-10] MEDS ORDERED: METOPROLOL TARTRATE INJ 5 MG/5 ML AMPUL ONE ×2 (09:17→09:23)
--- NOTE | 2021-01-10 09:29 | NUR ---
CTA PROCEDURE WELL TOLERATED BY THE PT. V/S STABLE, NOT IN RESPIRATORY DISTRESS, REPORT GIVEN TO RN OSMEL FOR MALINDA.
[2021-01-10] MEDS ORDERED: NITROGLYCERIN 0.4 MG/TAB BOTTLE SL ONE (09:30)
[2021-01-10] MEDS ORDERED: METOPROLOL TARTRATE INJ 5 MG/5 ML AMPUL IVP PRN (09:30)
[2021-01-10] MEDS: ASCORBIC ACID 500 MG TABLET PO SCH (09:52)
[2021-01-10] MEDS: VITAMIN E 400 UNIT CAPSULE PO SCH (09:52)
[2021-01-10] MEDS: ASPIRIN 81 MG TAB.CHEW PO SCH (09:52)
[2021-01-10] MEDS: MEMANTINE HCL 5 MG TABLET PO SCH (09:53)
[2021-01-10] MEDS: CHOLECALCIFEROL 1,000 UNIT TABLET (VIT D3) PO SCH (09:53)
[2021-01-10] MEDS: CYANOCOBALAMIN 500 MCG TABLET PO SCH (09:53)
[2021-01-10] MEDS: CALCIUM CARB 600MG /VIT D 1 EACH TABLET PO SCH ×3 (09:53→18:00)
[2021-01-10] MEDS: MAGNESIUM OXIDE 400 MG TABLET PO SCH (09:53)
[2021-01-10] MEDS: ACIDOPHILUS/BULGARICUS 1 EACH TAB.CHEW PO SCH (09:54)
[2021-01-10] MEDS: CYCLOBENZAPRINE 10 MG TABLET PO SCH ×3 (09:54→18:01)
[2021-01-10] MEDS: FAMOTIDINE (20 MG) 20 MG TABLET PO SCH ×2 (09:54→21:30)
[2021-01-10] MEDS: MODAFINIL 100 MG TABLET PO SCH ×2 (10:03→11:05)
[2021-01-10] MEDS ORDERED: IV NS 0.9% 500 ML IV ONE (12:00)
--- NOTE | 2021-01-10 12:45 | NUR ---
hep lock infiltrated rt. arm.adrianna'amy.
[2021-01-10] MEDS ORDERED: methylPREDNISolone SOD SUCC 1,000 MG in IV NS 0.9% 250 ML IV ONE (14:00)
[2021-01-10] MEDS: ENOXAPARIN SODIUM 40 MG/0.4 ML DISP.SYRIN SQ SCH (14:22)
[2021-01-10 16:00] VITALS: BP 112/74
[2021-01-10] MEDS ORDERED: NITROFURANTOIN/NITROFURAN MAC 100 MG CAPSULE PO SCH (17:00)
--- NOTE | 2021-01-10 18:30 | NUR ---
had ct angio of heart,venous duplex lower ext. and d-dimer.tolerated.gait unsteady,physical tx ordered.given fluid bolus and solumedrol for ms.troponins negative and tele dc'd.
--- NOTE | 2021-01-10 19:25 | NUR ---
RN NOTES PT ALERT AND ORIENTED X 4 PT IS NIGERIEN SPEAKING BUT UNDERSTANDS SOME BRAZILIAN. PT REPORTS NO PAIN OR RESPIRATORY DISTRESS AT THIS TIME PT ON ROOM AIR TOLERATING WELL. CALL LIGHT WITHIN REACH. WILL CONTINUE TO MONITOR.
[2021-01-10 20:00] VITALS: BP 99/68
[2021-01-10] MEDS ORDERED: SIMVASTATIN 10 MG TABLET PO SCH (22:00)
[2021-01-10] MEDS ORDERED: ATORVASTATIN 10 MG TABLET PO SCH (22:00)
[2021-01-11 05:50] LABS: BASOPHILS % (AUTO) 0.2 % (0.0-2.0); EOSINOPHILS % (AUTO) 0.1 % (0.0-6.0); HEMATOCRIT 42 % (33-45); LYMPHOCYTES # (AUTO) 1.2 /CMM (0.8-4.8); LYMPHOCYTES % (AUTO) 17.2 % (20.0-44.0); MEAN CORPUSCULAR HGB CONC 33 g/dl (31.0-36.0); MEAN CORPUSCULAR VOLUME 85 fL (82-100); MONOCYTES # (AUTO) 0.1 /CMM (0.1-1.30); MONOCYTES % (AUTO) 1.1 % (2.0-12.0); NEUTROPHILS # (AUTO) 5.6 /CMM (1.8-8.9); NEUTROPHILS % (AUTO) 81.4 % (43.0-81.0); PLATELET COUNT (AUTO) 235 /CMM (150-450); RED BLOOD CELL COUNT(AUTO) 4.98 MIL/uL (4.0-5.2); WHITE BLOOD COUNT (AUTO) 6.9 K/uL (4.3-11.0)
--- NOTE | 2021-01-11 06:28 | NUR ---
RN NOTES PT ALERT AND ORIENTED X 4 PT IS SOMALI SPEAKING BUT UNDERSTANDS SOME PERSIAN. PT REPORTS NO PAIN OR RESPIRATORY DISTRESS AT THIS TIME PT ON ROOM AIR TOLERATING WELL. PT HAS LFT AC 18 #G INTACT RUNNING NS @ 125 ML/HR CALL LIGHT WITHIN REACH. WILL ENDORSE CARE TO DAY SHIFT NURSE. Addendum: 01/11/21 at 0631 by BARBY MCBRIDE RN PT RIGHT HAND IV SALINE LOCKED PATENT INTACT NO REDNESS OR SWELLING AT SITE
[2021-01-11 06:33] LABS: POTASSIUM 4.4 mmol/L (3.5-5.1)
--- NOTE | 2021-01-11 07:45 | NUR ---
RN OPENING NOTES PT IS CALM, AWAKE AND ALERT X 3. SHE IS BREATHING EVENLY AND UNLABORED. NO SOB OR S/SX OF DISTRESS. PATIENT ON ROOM AIR 02 SAT @ 96 %. PATIENT HAS R HAND GAUGE 18 IV SITE PATENT AND INTACT. PATIENT CAN AMBULATE WITH ASSIST PER REPORT. SKIN IS INTACT AND DRY. WILL CONTINUE TO MONITOR THROUGHOUT SHIFT
[2021-01-11 08:00] VITALS: BP 96/60
[2021-01-11] MEDS: GABAPENTIN 300 MG CAPSULE PO SCH ×2 (09:00→09:23)
[2021-01-11] MEDS: MODAFINIL 100 MG TABLET PO SCH ×2 (09:00→09:29)
[2021-01-11] MEDS: CHOLECALCIFEROL 1,000 UNIT TABLET (VIT D3) PO SCH (09:17)
[2021-01-11] MEDS: CYANOCOBALAMIN 500 MCG TABLET PO SCH (09:17)
[2021-01-11] MEDS: CALCIUM CARB 600MG /VIT D 1 EACH TABLET PO SCH ×3 (09:18→16:29)
[2021-01-11] MEDS: ASPIRIN 81 MG TAB.CHEW PO SCH (09:18)
[2021-01-11] MEDS: ASCORBIC ACID 500 MG TABLET PO SCH (09:18)
[2021-01-11] MEDS: DOCUSATE SODIUM 250 MG CAPSULE PO SCH ×2 (09:18→16:29)
[2021-01-11] MEDS: CYCLOBENZAPRINE 10 MG TABLET PO SCH ×3 (09:19→16:29)
[2021-01-11] MEDS: ENOXAPARIN SODIUM 40 MG/0.4 ML DISP.SYRIN SQ SCH (09:20)
[2021-01-11] MEDS: VITAMIN E 400 UNIT CAPSULE PO SCH (09:23)
[2021-01-11] MEDS: FAMOTIDINE (20 MG) 20 MG TABLET PO SCH (09:23)
[2021-01-11] MEDS: ACIDOPHILUS/BULGARICUS 1 EACH TAB.CHEW PO SCH (09:24)
[2021-01-11] MEDS: MEMANTINE HCL 5 MG TABLET PO SCH (09:24)
[2021-01-11] MEDS: MAGNESIUM OXIDE 400 MG TABLET PO SCH (09:24)
[2021-01-11] MEDS ORDERED: PANT40TA2 PO (10:18)
[2021-01-11] MEDS ORDERED: ATOR20TA PO (10:19)
[2021-01-11] MEDS ORDERED: ASPI-1420 PO (10:19)
[2021-01-11] MEDS ORDERED: methylPREDNISolone SOD SUCC 1,000 MG in IV NS 0.9% 250 ML IV ONE (10:30)
[2021-01-11] MEDS ORDERED: IV NS 0.9% 500 ML IV ONE (10:30)
[2021-01-11 16:02] VITALS: BP 119/74
--- NOTE | 2021-01-11 18:55 | NUR ---
MS PIPE MACHINE OPERATOR NOTE PT IS CALM, AWAKE AND ALERT X 4. SHE IS BREATHING EVENLY AND UNLABORED. NO SOB OR S/SX OF DISTRESS. PATIENT ON ROOM AIR 02 SAT @ 96 %. PATIENT'S SKIN IS INTACT. PATIENT'S IV REMOVED, TOLERATED WELL. DISCHARGE INSTRUCTIONS WERE GIVEN ORALLY AND VERBALLY TO THE PATIENT. PATIENT ASKED QUESTIONS AND ALL WERE ANSWERED. PATIENT STATED SHE UNDERSTOOD. PATIENT WAS GIVEN FRONT WHEEL WALKER TO TAKE HOME WITH HER, BUT INSISTED TO CHANGE TO ALL WHEEL WALKER. PATIENT WANTED TO TAKE HOME BOTH WALKERS OR WOULD NOT GO HOME. WENT HOME WITH BOTH WALKERS. REMOVED PATIENT ARM BAND. 2 EMT CAME TO OFFICE MACHINE SERVICE SUPERVISOR PATIENT. PATIENT IS BEING TRANSFERRED HOME VIA AMBULANCE. LEFT IN STABLE CONDITION.
== END 2021-01-11 18:55 | disposition home health service (06) | DRG 198 ==
LOC: ER 00:51 → TELE 02:29 → MED 08:49
PROVIDERS: ADMIT Nurse Practitioner Acute Care; ATTEND Nurse Practitioner Acute Care
DX: I25.10 Atherosclerotic heart disease of native coronary artery without angina pectoris (principal); N17.0 Acute kidney failure with tubular necrosis; G93.41 Metabolic encephalopathy; E87.0 Hyperosmolality and hypernatremia; E44.1 Mild protein-calorie malnutrition; I48.91 Unspecified atrial fibrillation; G35 Multiple sclerosis; E86.0 Dehydration; E78.5 Hyperlipidemia, unspecified; E88.09 Other disorders of plasma-protein metabolism, not elsewhere classified; I10 Essential (primary) hypertension; Z79.82 Long term (current) use of aspirin; Z85.42 Personal history of malignant neoplasm of other parts of uterus; N28.1 Cyst of kidney, acquired; E87.8 Other disorders of electrolyte and fluid balance, not elsewhere classified; Z20.822 Contact with and (suspected) exposure to COVID-19
CPT/HCPCS: 36415; 71045-TC; 75574; 80048-TC; 80061-TC; 80076-TC; 83735-TC; 83880; 84100-TC; 84484-TC; 85025-TC; 85378-TC; 87081-TC; 93307-TC; 93970-TC; 97112-TC; 97116-TC; 97530-TC; C9803; G0378; J1650; J2930; J3490; J7040; J7050; Q9967

== ENCOUNTER 2022-11-08 19:34 | Emergency (ER) | payer MEDICAID ==
[~2022-11-08] VITALS: Ht 160 cm; Wt 59.0 kg
[~2022-11-08 19:34] MED LIST changes: -ASPI-1169 PO; +ASPI-1420 PO; +CYAN500T64 PO; -CYAN500T72 PO; +PANT40TA2 PO; -SIMV10TA98 PO
[2022-11-08 19:45] VITALS: BP 140/77
--- NOTE | 2022-11-08 19:45 | NUR ---
[id number]. R KNEE, R ANKLE AND LOW BACK PAIN X 2 DAYS S/P GLF. PT HAVE SEEN PT Anya/NABILA TOLERATING R/A WELL WITH NO RESP DISTRESS.
--- NOTE | 2022-11-08 21:05 | NUR ---
PT RETURNED FROM XRAY
[2022-11-08] MEDS ORDERED: NAPR-1192 PO (21:44)
--- NOTE | 2022-11-08 23:37 | NUR ---
Patient discharged to home in stable condition. Written and verbal after care instructions given. Patient verbalizes understanding of instruction. Pt ambulatory with crutches.
== END 2022-11-08 23:39 | disposition home or self-care (01) ==
LOC: ER 19:46
DX: S82.001A Unspecified fracture of right patella, initial encounter for closed fracture (principal); R51.9 Headache, unspecified; I10 Essential (primary) hypertension; E78.5 Hyperlipidemia, unspecified; I48.91 Unspecified atrial fibrillation; Z88.2 Allergy status to sulfonamides; Z79.899 Other long term (current) drug therapy; Z60.2 Problems related to living alone; W18.30XA Fall on same level, unspecified, initial encounter; Y93.89 Activity, other specified; Y92.89 Other specified places as the place of occurrence of the external cause; Y99.8 Other external cause status
CPT/HCPCS: 70450-TC; 73130-TC; 73564-TC; 73610-TC

== ENCOUNTER 2023-04-28 02:11 | Inpatient (IN) | payer BC, MEDICAID ==
[~2023-04-28] VITALS: Ht 157.5 cm; Wt 64.4 kg
[~2023-04-28 02:11] MED LIST changes: +NAPR-1192 PO
[2023-04-28] MEDS ORDERED: KETOROLAC TROMETHAMINE INJ 30 MG/ML VIAL IV ONE (02:30)
[2023-04-28] MEDS ORDERED: METOCLOPRAMIDE HCL 10 MG/2 ML VIAL IV ONE (02:30)
[2023-04-28] MEDS ORDERED: FAMOTIDINE/PF INJ 20 MG/2 ML VIAL IV ONE (02:30)
[2023-04-28] MEDS ORDERED: KETOROLAC TROMETHAMINE 15 MG/ML VIAL ONE (02:45)
[2023-04-28 02:59] LABS: BASOPHILS # (AUTO) 0.1 K/uL (0.0-0.2); BASOPHILS % (AUTO) 0.5 % (0.0-2.0); EOSINOPHILS # (AUTO) 0.1 K/uL (0.0-0.7); EOSINOPHILS % (AUTO) 0.8 % (0.0-6.0); HEMATOCRIT 42 % (33-45); HEMOGLOBIN 13.3 g/dL (11.5-14.8); LYMPHOCYTES # (AUTO) 2.3 K/uL (0.8-4.8); LYMPHOCYTES % (AUTO) 18.5 % (20.0-44.0); MEAN CORPUSCULAR HEMOGLOBIN 27 PG (26.0-33.0); MEAN CORPUSCULAR HGB CONC 32 g/dl (31.0-36.0); MEAN CORPUSCULAR VOLUME 85 fL (82-100); NEUTROPHILS # (AUTO) 8.9 K/uL (1.8-8.9); NEUTROPHILS % (AUTO) 72.2 % (43.0-81.0); PLATELET COUNT (AUTO) 245 K/uL (150-450); RED CELL DISTRIBUTION WIDTH 14.9 % (11.5-15.0); WHITE BLOOD COUNT (AUTO) 12.3 K/uL (4.3-11.0)
[2023-04-28 03:17] LABS: ALBUMIN 3.9 g/dL (3.4-5.0); BILIRUBIN,DIRECT 0.1 mg/dL (0.0-0.2); BILIRUBIN,TOTAL 0.4 mg/dL (0.2-1.0); CALCIUM, SERUM 9.2 mg/dL (8.5-10.1); CREATININE 0.9 mg/dL (0.6-1.3); POTASSIUM 4.2 mmol/L (3.5-5.1); TOTAL PROTEIN, SERUM 6.4 g/dL (6.4-8.2)
[2023-04-28] MEDS ORDERED: PIPERACILLIN /TAZOBACTAM 3.375 G in IV D5W 50 ML IV ONE (05:00)
[2023-04-28] MEDS ORDERED: PIPERACI/TAZO 3.375GM/D5W 50ML PB IV ONE (05:24)
[2023-04-28] MEDS ORDERED: ACETAMINOPHEN 325 MG TABLET PO PRN (06:00)
[2023-04-28] MEDS ORDERED: IV NS 0.9% 1,000 ML IV SCH (06:00)
[2023-04-28] MEDS ORDERED: MORPHINE SULFATE INJ 2 MG/ML DISP.SYRIN IV PRN (06:00)
[2023-04-28 06:51] LABS: APPEARANCE,URINE SLIGHTLY CLOUDY (CLEAR); BILIRUBIN,URINE NEGATIVE (NEGATIVE); BLOOD, URINE TRACE-INTA Ery/uL (NEGATIVE); COLOR,URINE YELLOW (YELLOW); KETONES,URINE NEGATIVE (NEGATIVE); LEUKOCYTE ESTERASE ,URINE 2+ (NEGATIVE); NITRITE, URINE POSITIVE (NEGATIVE); PH,URINE 6.5 (5.0-8.0); PROTEIN,URINE NEGATIVE (NEGATIVE); UGLUCOSE NEGATIVE (NEGATIVE); UROBILINOGEN,URINE 0.2 EU/dL (0.2)
[2023-04-28 07:03] LABS: RBC,URINE 0-2 /HPF (0-2)
[2023-04-28 07:04] LABS: ADD URINE CULTURE YES; BACTERIA,URINE 4+ /HPF (None Seen); SQUAMOUS EPITHELIAL CELL,UR Few /HPF (None Seen)
[2023-04-28 12:30] VITALS: BP 97/63; TEMP 97.7; O2SAT 95
[2023-04-28] MEDS ORDERED: ERGO500093 PO (12:30)
[2023-04-28] MEDS ORDERED: SENN-261 PO (12:30)
[2023-04-28] MEDS ORDERED: ATOR20TA PO (12:30)
[2023-04-28] MEDS: ZOSYN IVPB 3.375 G in IV D5W 50ml IV SCH ×2 (12:49→18:12)
[2023-04-28] MEDS: IV NS 0.9% 1,000 ML IV PRN (12:57)
[2023-04-28 16:00] VITALS: BP 107/71; TEMP 97.1; O2SAT 95
[2023-04-28 20:00] VITALS: BP 113/67; TEMP 97.7; O2SAT 98
[2023-04-29] MEDS: ZOSYN IVPB 3.375 G in IV D5W 50ml IV SCH ×4 (00:11→17:56)
[2023-04-29 05:52] LABS: BASOPHILS % (AUTO) 0.7 % (0.0-2.0); EOSINOPHILS # (AUTO) 0.2 K/uL (0.0-0.7); EOSINOPHILS % (AUTO) 3.2 % (0.0-6.0); HEMATOCRIT 40 % (33-45); HEMOGLOBIN 12.6 g/dL (11.5-14.8); LYMPHOCYTES # (AUTO) 2.6 K/uL (0.8-4.8); MEAN CORPUSCULAR HEMOGLOBIN 28 PG (26.0-33.0); MEAN CORPUSCULAR HGB CONC 32 g/dl (31.0-36.0); MEAN CORPUSCULAR VOLUME 87 fL (82-100); MONOCYTES # (AUTO) 0.5 K/uL (0.1-1.30); MONOCYTES % (AUTO) 10.5 % (2.0-12.0); NEUTROPHILS # (AUTO) 1.4 K/uL (1.8-8.9); NEUTROPHILS % (AUTO) 29.6 % (43.0-81.0); PLATELET COUNT (AUTO) 182 K/uL (150-450); RED BLOOD CELL COUNT(AUTO) 4.59 MIL/uL (4.0-5.2); RED CELL DISTRIBUTION WIDTH 15.2 % (11.5-15.0); WHITE BLOOD COUNT (AUTO) 4.7 K/uL (4.3-11.0)
[2023-04-29 06:17] LABS: ALBUMIN 2.7 g/dL (3.4-5.0); BILIRUBIN,TOTAL 0.4 mg/dL (0.2-1.0); CALCIUM, SERUM 8.5 mg/dL (8.5-10.1); CREATININE 0.8 mg/dL (0.6-1.3); MAGNESIUM 2.1 mg/dL (1.8-2.4); PHOSPHORUS 4.2 mg/dL (2.5-4.9); TOTAL PROTEIN, SERUM 5.2 g/dL (6.4-8.2)
[2023-04-29] MEDS: IV NS 0.9% 1,000 ML IV PRN (06:24)
[2023-04-29] MEDS: ENOXAPARIN SODIUM 40 MG/0.4 ML DISP.SYRIN SQ SCH (06:34)
[2023-04-29 08:00] VITALS: BP 90/66; TEMP 98.6; O2SAT 96
[2023-04-29 16:00] VITALS: BP 126/86; TEMP 97.6; O2SAT 97
[2023-04-29] MEDS: POLYETHYLENE GLYCOL 3350 17 GM POWD.PACK PO PRN (16:53)
[2023-04-29] MEDS: DOCUSATE SODIUM 100 MG CAPSULE PO SCH (17:00)
[2023-04-29 19:00] VITALS: BP 127/62; TEMP 97.5; O2SAT 100
[2023-04-30] MEDS: ZOSYN IVPB 3.375 G in IV D5W 50ml IV SCH ×4 (00:09→17:16)
[2023-04-30] MEDS: IV NS 0.9% 1,000 ML IV PRN ×2 (02:54→21:35)
[2023-04-30 05:55] LABS: BASOPHILS % (AUTO) 0.6 % (0.0-2.0); EOSINOPHILS # (AUTO) 0.1 K/uL (0.0-0.7); EOSINOPHILS % (AUTO) 2.9 % (0.0-6.0); HEMATOCRIT 40 % (33-45); HEMOGLOBIN 12.9 g/dL (11.5-14.8); LYMPHOCYTES # (AUTO) 2.3 K/uL (0.8-4.8); LYMPHOCYTES % (AUTO) 47.1 % (20.0-44.0); MEAN CORPUSCULAR HEMOGLOBIN 28 PG (26.0-33.0); MEAN CORPUSCULAR HGB CONC 33 g/dl (31.0-36.0); MEAN CORPUSCULAR VOLUME 85 fL (82-100); MONOCYTES # (AUTO) 0.6 K/uL (0.1-1.30); MONOCYTES % (AUTO) 11.5 % (2.0-12.0); NEUTROPHILS # (AUTO) 1.9 K/uL (1.8-8.9); NEUTROPHILS % (AUTO) 37.9 % (43.0-81.0); PLATELET COUNT (AUTO) 222 K/uL (150-450); RED BLOOD CELL COUNT(AUTO) 4.71 MIL/uL (4.0-5.2); RED CELL DISTRIBUTION WIDTH 14.7 % (11.5-15.0)
[2023-04-30 06:18] LABS: CALCIUM, SERUM 9.3 mg/dL (8.5-10.1); MAGNESIUM 2.1 mg/dL (1.8-2.4); POTASSIUM 4.3 mmol/L (3.5-5.1)
[2023-04-30] MEDS: ENOXAPARIN SODIUM 40 MG/0.4 ML DISP.SYRIN SQ SCH (06:29)
[2023-04-30 08:00] VITALS: BP 130/77; TEMP 97.5; O2SAT 97
[2023-04-30] MEDS: DOCUSATE SODIUM 100 MG CAPSULE PO SCH ×2 (09:13→18:15)
[2023-04-30] MEDS ORDERED: METR500T PO (14:54)
[2023-04-30] MEDS ORDERED: CIPR500T5 PO (14:54)
[2023-04-30 16:00] VITALS: BP 115/73; TEMP 98.2; O2SAT 98
[2023-04-30 20:00] VITALS: BP 111/66; TEMP 97.7; O2SAT 95
[2023-05-01] MEDS: ZOSYN IVPB 3.375 G in IV D5W 50ml IV SCH ×4 (00:36→17:58)
[2023-05-01 05:54] LABS: BASOPHILS % (AUTO) 0.5 % (0.0-2.0); EOSINOPHILS # (AUTO) 0.1 K/uL (0.0-0.7); EOSINOPHILS % (AUTO) 2.8 % (0.0-6.0); HEMATOCRIT 39 % (33-45); HEMOGLOBIN 12.9 g/dL (11.5-14.8); LYMPHOCYTES # (AUTO) 2.6 K/uL (0.8-4.8); LYMPHOCYTES % (AUTO) 54.8 % (20.0-44.0); MEAN CORPUSCULAR HEMOGLOBIN 28 PG (26.0-33.0); MEAN CORPUSCULAR HGB CONC 33 g/dl (31.0-36.0); MEAN CORPUSCULAR VOLUME 84 fL (82-100); MONOCYTES # (AUTO) 0.5 K/uL (0.1-1.30); MONOCYTES % (AUTO) 11.3 % (2.0-12.0); NEUTROPHILS # (AUTO) 1.4 K/uL (1.8-8.9); NEUTROPHILS % (AUTO) 30.6 % (43.0-81.0); PLATELET COUNT (AUTO) 210 K/uL (150-450); RED BLOOD CELL COUNT(AUTO) 4.64 MIL/uL (4.0-5.2); RED CELL DISTRIBUTION WIDTH 14.5 % (11.5-15.0); WHITE BLOOD COUNT (AUTO) 4.7 K/uL (4.3-11.0)
[2023-05-01] MEDS: ENOXAPARIN SODIUM 40 MG/0.4 ML DISP.SYRIN SQ SCH (06:01)
[2023-05-01 06:03] LABS: CALCIUM, SERUM 8.7 mg/dL (8.5-10.1); MAGNESIUM 1.9 mg/dL (1.8-2.4); PHOSPHORUS 4.3 mg/dL (2.5-4.9); POTASSIUM 3.6 mmol/L (3.5-5.1)
[2023-05-01 07:30] VITALS: BP 123/69; TEMP 97.8; O2SAT 95
[2023-05-01] MEDS: DOCUSATE SODIUM 100 MG CAPSULE PO SCH ×2 (08:23→16:35)
[2023-05-01 16:00] VITALS: BP 128/73; TEMP 98.1; O2SAT 96
[2023-05-01 20:58] VITALS: BP 132/83; TEMP 98; O2SAT 100
[2023-05-02] MEDS: ZOSYN IVPB 3.375 G in IV D5W 50ml IV SCH ×4 (00:41→17:29)
[2023-05-02] MEDS: ENOXAPARIN SODIUM 40 MG/0.4 ML DISP.SYRIN SQ SCH (05:54)
[2023-05-02 06:39] LABS: BASOPHILS % (AUTO) 0.5 % (0.0-2.0); EOSINOPHILS # (AUTO) 0.1 K/uL (0.0-0.7); EOSINOPHILS % (AUTO) 3.2 % (0.0-6.0); HEMATOCRIT 38 % (33-45); HEMOGLOBIN 12.5 g/dL (11.5-14.8); LYMPHOCYTES # (AUTO) 2.9 K/uL (0.8-4.8); LYMPHOCYTES % (AUTO) 62.9 % (20.0-44.0); MEAN CORPUSCULAR HEMOGLOBIN 27 PG (26.0-33.0); MEAN CORPUSCULAR HGB CONC 33 g/dl (31.0-36.0); MEAN CORPUSCULAR VOLUME 83 fL (82-100); MONOCYTES # (AUTO) 0.5 K/uL (0.1-1.30); MONOCYTES % (AUTO) 10.7 % (2.0-12.0); NEUTROPHILS # (AUTO) 1.1 K/uL (1.8-8.9); NEUTROPHILS % (AUTO) 22.7 % (43.0-81.0); PLATELET COUNT (AUTO) 212 K/uL (150-450); RED BLOOD CELL COUNT(AUTO) 4.56 MIL/uL (4.0-5.2); RED CELL DISTRIBUTION WIDTH 14.6 % (11.5-15.0); WHITE BLOOD COUNT (AUTO) 4.7 K/uL (4.3-11.0)
[2023-05-02 07:27] LABS: CALCIUM, SERUM 8.7 mg/dL (8.5-10.1); MAGNESIUM 1.9 mg/dL (1.8-2.4); POTASSIUM 3.4 mmol/L (3.5-5.1)
[2023-05-02 07:30] VITALS: BP 116/69; TEMP 98.4; O2SAT 99
[2023-05-02] MEDS ORDERED: LIDOCAINE 1% INJ 50 ML MDV IJ ONE (08:18)
[2023-05-02] MEDS ORDERED: BUPIVACAINE MPF 0.5% W/EPI INJ 30 ML VIAL ONE (08:18)
[2023-05-02] MEDS ORDERED: FENTANYL PF 100MCG/2ML AMPUL ONE ×2 (08:51→10:52)
[2023-05-02] MEDS ORDERED: HYDROMORPHONE INJ 2 MG/ML DISP.SYRIN ONE (08:51)
[2023-05-02] MEDS ORDERED: MIDAZOLAM HCL 2 MG/2ML VIAL ONE (08:51)
[2023-05-02] MEDS: DOCUSATE SODIUM 100 MG CAPSULE PO SCH ×2 (09:00→16:21)
[2023-05-02] MEDS ORDERED: BACITRACIN ZINC OINT PACKET 1 EA PACKET TP ONE (09:57)
[2023-05-02 11:30] VITALS: BP 122/81; TEMP 97.5; O2SAT 93
[2023-05-02] MEDS: POTASSIUM CL. PREMIX PERIPHER. 50 ML IV SCH ×2 (11:39→12:42)
[2023-05-02 11:45] VITALS: BP 121/90; TEMP 97.6; O2SAT 95
[2023-05-02 12:00] VITALS: BP_SYST 110; BP_SYST 113; BP_DIAS 62; BP_DIAS 72; TEMP 97.5; TEMP 97.8; O2SAT 94; O2SAT 95
[2023-05-02] MEDS ORDERED: IV LR 1000 ML 1,000 ML IV ONE (12:00)
[2023-05-02] MEDS: CELECOXIB 100 MG CAPSULE PO SCH (12:34)
[2023-05-02] MEDS: GABAPENTIN 100 MG CAPSULE PO SCH ×2 (12:34→21:00)
[2023-05-02] MEDS: ACETAMINOPHEN 325 MG TABLET PO SCH ×2 (12:34→21:39)
[2023-05-02 16:00] VITALS: BP 122/63; TEMP 98.2; O2SAT 95
[2023-05-02 20:00] VITALS: BP 132/78; TEMP 97.7; O2SAT 97
[2023-05-03] MEDS: CELECOXIB 100 MG CAPSULE PO SCH ×3 (00:17→12:15)
[2023-05-03] MEDS: ZOSYN IVPB 3.375 G in IV D5W 50ml IV SCH ×4 (00:17→17:14)
[2023-05-03] MEDS: GABAPENTIN 100 MG CAPSULE PO SCH ×3 (05:00→21:17)
[2023-05-03] MEDS: ACETAMINOPHEN 325 MG TABLET PO SCH ×3 (05:33→21:17)
[2023-05-03] MEDS: ENOXAPARIN SODIUM 40 MG/0.4 ML DISP.SYRIN SQ SCH (05:34)
[2023-05-03 06:26] LABS: BASOPHILS % (AUTO) 0.1 % (0.0-2.0); EOSINOPHILS % (AUTO) 0.1 % (0.0-6.0); HEMATOCRIT 39 % (33-45); HEMOGLOBIN 12.9 g/dL (11.5-14.8); LYMPHOCYTES # (AUTO) 2.5 K/uL (0.8-4.8); LYMPHOCYTES % (AUTO) 25.6 % (20.0-44.0); MEAN CORPUSCULAR HEMOGLOBIN 28 PG (26.0-33.0); MEAN CORPUSCULAR HGB CONC 33 g/dl (31.0-36.0); MEAN CORPUSCULAR VOLUME 84 fL (82-100); MONOCYTES # (AUTO) 0.8 K/uL (0.1-1.30); MONOCYTES % (AUTO) 7.6 % (2.0-12.0); NEUTROPHILS # (AUTO) 6.6 K/uL (1.8-8.9); NEUTROPHILS % (AUTO) 66.6 % (43.0-81.0); PLATELET COUNT (AUTO) 211 K/uL (150-450); RED BLOOD CELL COUNT(AUTO) 4.64 MIL/uL (4.0-5.2); RED CELL DISTRIBUTION WIDTH 14.9 % (11.5-15.0); WHITE BLOOD COUNT (AUTO) 9.9 K/uL (4.3-11.0)
[2023-05-03 06:51] LABS: CALCIUM, SERUM 9.3 mg/dL (8.5-10.1); CREATININE 0.9 mg/dL (0.6-1.3); MAGNESIUM 2.1 mg/dL (1.8-2.4); PHOSPHORUS 3.4 mg/dL (2.5-4.9); POTASSIUM 3.9 mmol/L (3.5-5.1)
[2023-05-03 07:30] VITALS: BP 109/67; TEMP 98.4; O2SAT 93
[2023-05-03] MEDS: DOCUSATE SODIUM 100 MG CAPSULE PO SCH ×2 (09:31→16:25)
[2023-05-03] MEDS: ONDANSETRON HCL/PF 4 MG/2 ML VIAL IVP PRN (09:37)
[2023-05-03 09:38] VITALS: BP 109/67; TEMP 98.4; O2SAT 93
[2023-05-03 16:00] VITALS: BP 109/60; TEMP 98.3; O2SAT 95
[2023-05-03] MEDS: IV NS 0.9% 1,000 ML IV PRN (18:13)
[2023-05-03 20:00] VITALS: BP 111/77; TEMP 97.9; O2SAT 94
[2023-05-03 20:24] VITALS: BP 103/60; TEMP 98.3; O2SAT 95
[2023-05-04] MEDS: ZOSYN IVPB 3.375 G in IV D5W 50ml IV SCH ×4 (00:08→18:38)
[2023-05-04] MEDS: CELECOXIB 100 MG CAPSULE PO SCH ×2 (00:17→13:25)
[2023-05-04] MEDS: GABAPENTIN 100 MG CAPSULE PO SCH ×3 (05:00→21:00)
[2023-05-04] MEDS: ACETAMINOPHEN 325 MG TABLET PO SCH ×3 (06:38→21:32)
[2023-05-04] MEDS: ENOXAPARIN SODIUM 40 MG/0.4 ML DISP.SYRIN SQ SCH (06:45)
[2023-05-04 07:00] VITALS: BP 99/73; TEMP 98; O2SAT 97
[2023-05-04 07:30] VITALS: BP 131/81; TEMP 98.1; O2SAT 97
[2023-05-04] MEDS: DOCUSATE SODIUM 100 MG CAPSULE PO SCH ×2 (08:53→16:51)
[2023-05-04] MEDS: POLYETHYLENE GLYCOL 3350 17 GM POWD.PACK PO PRN (08:54)
[2023-05-04 09:35] LABS: BASOPHILS # (AUTO) 0.1 K/uL (0.0-0.2); BASOPHILS % (AUTO) 0.8 % (0.0-2.0); EOSINOPHILS # (AUTO) 0.1 K/uL (0.0-0.7); EOSINOPHILS % (AUTO) 1.5 % (0.0-6.0); HEMATOCRIT 39 % (33-45); HEMOGLOBIN 12.7 g/dL (11.5-14.8); LYMPHOCYTES # (AUTO) 3.3 K/uL (0.8-4.8); LYMPHOCYTES % (AUTO) 51.6 % (20.0-44.0); MEAN CORPUSCULAR HEMOGLOBIN 27 PG (26.0-33.0); MEAN CORPUSCULAR HGB CONC 32 g/dl (31.0-36.0); MEAN CORPUSCULAR VOLUME 84 fL (82-100); MONOCYTES # (AUTO) 0.4 K/uL (0.1-1.30); MONOCYTES % (AUTO) 6.2 % (2.0-12.0); NEUTROPHILS # (AUTO) 2.6 K/uL (1.8-8.9); NEUTROPHILS % (AUTO) 39.9 % (43.0-81.0); PLATELET COUNT (AUTO) 219 K/uL (150-450); RED BLOOD CELL COUNT(AUTO) 4.69 MIL/uL (4.0-5.2); RED CELL DISTRIBUTION WIDTH 14.8 % (11.5-15.0); WHITE BLOOD COUNT (AUTO) 6.4 K/uL (4.3-11.0)
[2023-05-04 09:52] LABS: CALCIUM, SERUM 8.9 mg/dL (8.5-10.1); CREATININE 1.1 mg/dL (0.6-1.3); MAGNESIUM 1.9 mg/dL (1.8-2.4); POTASSIUM 3.4 mmol/L (3.5-5.1)
[2023-05-04] MEDS ORDERED: HYDROCODONE/APAP 5/325MG TABLET PO PRN (11:30)
[2023-05-04] MEDS: ONDANSETRON HCL/PF 4 MG/2 ML VIAL IVP PRN (13:37)
[2023-05-04 16:00] VITALS: BP 101/54; TEMP 98.2; O2SAT 97
[2023-05-04] MEDS ORDERED: MAGNESIUM HYDROXIDE 30 ML UDC PO PRN (17:00)
[2023-05-04 20:49] VITALS: BP 140/71; TEMP 98; O2SAT 96
[2023-05-05] MEDS: ZOSYN IVPB 3.375 G in IV D5W 50ml IV SCH ×2 (00:49→05:57)
[2023-05-05] MEDS: CELECOXIB 100 MG CAPSULE PO SCH ×2 (00:55→13:42)
[2023-05-05] MEDS: GABAPENTIN 100 MG CAPSULE PO SCH ×3 (04:52→20:59)
[2023-05-05] MEDS: ACETAMINOPHEN 325 MG TABLET PO SCH ×3 (05:10→21:13)
[2023-05-05 06:04] LABS: CREATININE 0.9 mg/dL (0.6-1.3); MAGNESIUM 1.9 mg/dL (1.8-2.4); PHOSPHORUS 4.2 mg/dL (2.5-4.9); POTASSIUM 3.6 mmol/L (3.5-5.1)
[2023-05-05] MEDS: ENOXAPARIN SODIUM 40 MG/0.4 ML DISP.SYRIN SQ SCH (06:36)
[2023-05-05 06:40] LABS: BASOPHILS % (AUTO) 0.8 % (0.0-2.0); EOSINOPHILS # (AUTO) 0.2 K/uL (0.0-0.7); EOSINOPHILS % (AUTO) 3.5 % (0.0-6.0); HEMATOCRIT 39 % (33-45); HEMOGLOBIN 12.7 g/dL (11.5-14.8); LYMPHOCYTES # (AUTO) 2.6 K/uL (0.8-4.8); LYMPHOCYTES % (AUTO) 46.7 % (20.0-44.0); MEAN CORPUSCULAR HEMOGLOBIN 27 PG (26.0-33.0); MEAN CORPUSCULAR HGB CONC 32 g/dl (31.0-36.0); MEAN CORPUSCULAR VOLUME 84 fL (82-100); MONOCYTES # (AUTO) 0.6 K/uL (0.1-1.30); MONOCYTES % (AUTO) 10.4 % (2.0-12.0); NEUTROPHILS # (AUTO) 2.1 K/uL (1.8-8.9); NEUTROPHILS % (AUTO) 38.6 % (43.0-81.0); PLATELET COUNT (AUTO) 201 K/uL (150-450); RED BLOOD CELL COUNT(AUTO) 4.67 MIL/uL (4.0-5.2); RED CELL DISTRIBUTION WIDTH 14.9 % (11.5-15.0); WHITE BLOOD COUNT (AUTO) 5.5 K/uL (4.3-11.0)
[2023-05-05 07:30] VITALS: BP 114/62; TEMP 98; O2SAT 96
[2023-05-05] MEDS: DOCUSATE SODIUM 100 MG CAPSULE PO SCH ×2 (08:45→16:19)
[2023-05-05] MEDS: AMOX/CLAVULANATE 875 MG TABLET PO SCH ×2 (08:50→21:14)
[2023-05-05] MEDS: ONDANSETRON HCL/PF 4 MG/2 ML VIAL IVP PRN ×2 (09:10→21:13)
[2023-05-05] MEDS ORDERED: HYDR-3972 PO (12:00)
[2023-05-05] MEDS ORDERED: AMOX-430 PO (12:00)
[2023-05-05] MEDS ORDERED: ONDA4TAB11 PO (12:02)
[2023-05-05] MEDS ORDERED: LOPERAMIDE HCL (2 MG CAP) 2 MG CAPSULE PO PRN (13:30)
[2023-05-05 16:00] VITALS: BP 111/62; TEMP 97.9; O2SAT 95
[2023-05-05] MEDS ORDERED: PHENYLEPHRINE/SHK LV/MO/PET,WH 30 GM TUBE RC PRN (16:00)
[2023-05-05] MEDS ORDERED: MAG HYDROX/AL HYDROX/SIMETH 30 ML UDC PO PRN (18:30)
[2023-05-05 20:00] VITALS: BP 111/67; TEMP 98.5; O2SAT 95
[2023-05-06] MEDS: CELECOXIB 100 MG CAPSULE PO SCH ×2 (01:00→12:30)
[2023-05-06] MEDS: ACETAMINOPHEN 325 MG TABLET PO SCH ×3 (05:00→12:30)
[2023-05-06] MEDS: GABAPENTIN 100 MG CAPSULE PO SCH ×2 (05:00→12:30)
[2023-05-06] MEDS: ENOXAPARIN SODIUM 40 MG/0.4 ML DISP.SYRIN SQ SCH (05:17)
[2023-05-06 08:00] VITALS: BP 112/67; TEMP 98.7; O2SAT 93
[2023-05-06] MEDS: AMOX/CLAVULANATE 875 MG TABLET PO SCH (08:59)
[2023-05-06] MEDS: DOCUSATE SODIUM 100 MG CAPSULE PO SCH (09:00)
[2023-05-06] MEDS ORDERED: LOPERAMIDE HCL (2 MG CAP) 2 MG CAPSULE PO ONE (12:30)
[2023-05-06 14:00] VITALS: BP 116/58; TEMP 97.8; O2SAT 96
== END 2023-05-06 17:20 | disposition home or self-care (01) | DRG 224 ==
LOC: ER 02:15 → MED 06:19
PROVIDERS: ADMIT Internal Medicine; ATTEND Nurse Practitioner Family
PROC: 0DTJ4ZZ Resection of Appendix, Percutaneous Endoscopic Approach (ICD-10-PCS; principal; 2023-05-02)
PROC: 0DNU4ZZ Release Omentum, Percutaneous Endoscopic Approach (ICD-10-PCS; principal; 2023-05-02)
DX: K35.30 Acute appendicitis with localized peritonitis, without perforation or gangrene (principal); N39.0 Urinary tract infection, site not specified; A09 Infectious gastroenteritis and colitis, unspecified; E11.9 Type 2 diabetes mellitus without complications; I48.91 Unspecified atrial fibrillation; G35 Multiple sclerosis; B96.20 Unspecified Escherichia coli [E. coli] as the cause of diseases classified elsewhere; E78.5 Hyperlipidemia, unspecified; I10 Essential (primary) hypertension; N20.0 Calculus of kidney; Z88.2 Allergy status to sulfonamides; Z85.43 Personal history of malignant neoplasm of ovary; Z87.442 Personal history of urinary calculi; Z85.42 Personal history of malignant neoplasm of other parts of uterus; Z90.710 Acquired absence of both cervix and uterus; I88.0 Nonspecific mesenteric lymphadenitis; Z16.24 Resistance to multiple antibiotics; K66.0 Peritoneal adhesions (postprocedural) (postinfection)
CPT/HCPCS: 36415; 71045-TC; 74018; 80048-TC; 80053-TC; 80076-TC; 81001; 83605-TC; 83690-TC; 83735-TC; 84100-TC; 85025-TC; 87040-TC; 87081-TC; 87086-TC; 88304-TC; 93971-TC; A4223; G0378; J0330; J0690; J1100; J1170; J1650; J1885; J2250; J2270; J2405; J2543; J2704; J2765; J3010; J3480; J3490; J7030; J7050; J7060; J7120

== ENCOUNTER 2023-09-28 06:33 | Emergency (ER) | payer BC, MEDICAID ==
[~2023-09-28] VITALS: Ht 165.1 cm; Wt 59.0 kg
[~2023-09-28 06:33] MED LIST changes: -ACET-868 PO; -ACID1TAB12 PO; +AMOX-430 PO; -ASCO500C17 PO; -ASCO500T87 PO; -ASPI-1420 PO; -CALC-1026 PO; -CALC-261 PO; -CHOL200013 PO; -CHOL200059 PO; -CYAN500T64 PO; -CYCL5TAB PO; -DALF10TA PO; -DOCU250C21 PO; +ERGO500093 PO; -GABA-534 PO; +HYDR-3972 PO; -HYDR-4384 PO; -MAGN400T8 PO; -MEMA5TAB PO; -MODA200T22 PO; -NAPR-1192 PO; -NITR100C PO; -OMEG10006 PO; +ONDA4TAB11 PO; -PANT40TA2 PO; -RANI150T8 PO; +SENN-261 PO; -SENN1TAB6 PO
[2023-09-28] MEDS ORDERED: ONDANSETRON 4 MG TAB.RAPDIS SL ONE (11:30)
[2023-09-28] MEDS ORDERED: MECLIZINE HCL 12.5 MG TABLET PO ONE (11:30)
[2023-09-28 11:35] VITALS: BP 121/66; TEMP 98.1; O2SAT 98
[2023-09-28] MEDS ORDERED: MECLIZINE HCL 25 MG TABLET ONE (11:46)
[2023-09-28] MEDS ORDERED: ONDANSETRON 4 MG TAB.RAPDIS ONE (11:46)
== END 2023-09-28 11:43 | disposition home or self-care (01) ==
LOC: ER 06:41
DX: S00.81XA Abrasion of other part of head, initial encounter (principal); I10 Essential (primary) hypertension; Z79.899 Other long term (current) drug therapy; Z98.890 Other specified postprocedural states; Z60.2 Problems related to living alone; Z88.2 Allergy status to sulfonamides; W01.0XXA Fall on same level from slipping, tripping and stumbling without subsequent striking against object, initial encounter; Y93.89 Activity, other specified; Y92.89 Other specified places as the place of occurrence of the external cause; Y99.8 Other external cause status
CPT/HCPCS: 99284; 72125; 73130; 70450; J8597; Q0162

== ENCOUNTER 2024-08-18 19:55 | Emergency (ER) | payer MEDICAID ==
[~2024-08-18] VITALS: Ht 165.1 cm; Wt 63.5 kg
[2024-08-18 20:40] LABS: BASOPHILS % (AUTO) 0.6 % (0.0-2.0); EOSINOPHILS # (AUTO) 0.4 K/uL (0.0-0.7); EOSINOPHILS % (AUTO) 6.2 % (0.0-6.0); HEMATOCRIT 42 % (33-45); HEMOGLOBIN 13.7 g/dL (11.5-14.8); LYMPHOCYTES # (AUTO) 3.1 K/uL (0.8-4.8); LYMPHOCYTES % (AUTO) 49.1 % (20.0-44.0); MEAN CORPUSCULAR HEMOGLOBIN 27 PG (26.0-33.0); MEAN CORPUSCULAR HGB CONC 33 g/dl (31.0-36.0); MEAN CORPUSCULAR VOLUME 84 fL (82-100); MONOCYTES # (AUTO) 0.7 K/uL (0.1-1.30); MONOCYTES % (AUTO) 11.1 % (2.0-12.0); NEUTROPHILS # (AUTO) 2.1 K/uL (1.8-8.9); PLATELET COUNT (AUTO) 236 K/uL (150-450); RED BLOOD CELL COUNT(AUTO) 5.01 MIL/uL (4.0-5.2); RED CELL DISTRIBUTION WIDTH 15.1 % (11.5-15.0); WHITE BLOOD COUNT (AUTO) 6.3 K/uL (4.3-11.0)
[2024-08-18 21:05] LABS: CALCIUM, SERUM 9.2 mg/dL (8.5-10.1); CARBON DIOXIDE 27 mmol/L (21-32); CHLORIDE 103 mmol/L (98-107); CREATININE 0.8 mg/dL (0.6-1.3); GLUCOSE 92 mg/dL (74-106); POTASSIUM 4.1 mmol/L (3.5-5.1); SODIUM SERUM 141 mmol/L (136-145); UREA NITROGEN, BLOOD 20 mg/dL (7-18)
[2024-08-18 21:11] LABS: ALANINE AMINOTRANSFERASE 22 U/L (12-78); ALKALINE PHOSPHATASE 134 U/L (46-116); ASPARTATE AMINOTRANSFERASE 20 U/L (15-37); BILIRUBIN,DIRECT 0.1 mg/dL (0.0-0.2); BILIRUBIN,TOTAL 0.3 mg/dL (0.2-1.0)
[2024-08-18 23:51] VITALS: BP 139/89; TEMP 98.2; O2SAT 96
== END 2024-08-19 00:04 | disposition home or self-care (01) ==
LOC: ER 20:01
DX: R07.89 Other chest pain (principal); I10 Essential (primary) hypertension; Z90.722 Acquired absence of ovaries, bilateral; Z79.899 Other long term (current) drug therapy; Z60.2 Problems related to living alone; Z88.2 Allergy status to sulfonamides
CPT/HCPCS: 36415; 71045-TC; 80048-TC; 80076-TC; 84484-TC; 85025-TC; 85378-TC

== ENCOUNTER 2024-09-02 13:11 | Emergency (ER) | payer MEDICAID ==
[~2024-09-02] VITALS: Ht 157.5 cm; Wt 62.6 kg
[2024-09-02 14:32] LABS: BASOPHILS % (AUTO) 0.7 % (0.0-2.0); EOSINOPHILS # (AUTO) 0.1 K/uL (0.0-0.7); EOSINOPHILS % (AUTO) 2.1 % (0.0-6.0); HEMATOCRIT 40 % (33-45); HEMOGLOBIN 13.1 g/dL (11.5-14.8); LYMPHOCYTES # (AUTO) 2.7 K/uL (0.8-4.8); LYMPHOCYTES % (AUTO) 39.8 % (20.0-44.0); MEAN CORPUSCULAR HEMOGLOBIN 28 PG (26.0-33.0); MEAN CORPUSCULAR HGB CONC 33 g/dl (31.0-36.0); MEAN CORPUSCULAR VOLUME 83 fL (82-100); MONOCYTES # (AUTO) 0.6 K/uL (0.1-1.30); MONOCYTES % (AUTO) 9.3 % (2.0-12.0); NEUTROPHILS # (AUTO) 3.2 K/uL (1.8-8.9); NEUTROPHILS % (AUTO) 48.1 % (43.0-81.0); PLATELET COUNT (AUTO) 244 K/uL (150-450); RED BLOOD CELL COUNT(AUTO) 4.75 MIL/uL (4.0-5.2); RED CELL DISTRIBUTION WIDTH 14.6 % (11.5-15.0); WHITE BLOOD COUNT (AUTO) 6.7 K/uL (4.3-11.0)
[2024-09-02 14:44] LABS: CARBON DIOXIDE 28 mmol/L (21-32); CHLORIDE 111 mmol/L (98-107); CREATININE 0.8 mg/dL (0.6-1.3); GLUCOSE 86 mg/dL (74-106); POTASSIUM 4.1 mmol/L (3.5-5.1); SODIUM SERUM 145 mmol/L (136-145); UREA NITROGEN, BLOOD 14 mg/dL (7-18)
[2024-09-02 14:59] LABS: ALANINE AMINOTRANSFERASE 27 U/L (12-78); ALKALINE PHOSPHATASE 129 U/L (46-116); ASPARTATE AMINOTRANSFERASE 20 U/L (15-37); BILIRUBIN,DIRECT 0.1 mg/dL (0.0-0.2); BILIRUBIN,TOTAL 0.4 mg/dL (0.2-1.0); NT-PRO BNP 70 pg/mL (0-125); TOTAL PROTEIN, SERUM 6.5 g/dL (6.4-8.2)
[2024-09-02 15:07] LABS: INR 1.01 (0.91-1.10); PARTIAL THROMBOPLASTIN TIME 24.8 SEC (24.3-34.3); PROTHROMBIN TIME 10.7 SECS (9.2-11.1)
[2024-09-02 15:15] LABS: ABG BASE EXCESS -1.8 mmol/L (-2.0-3.0); ABG OXYGEN SATURATION 95.2 % (94.0-98.0); ABG PCO2 35.2 mmHg (32.0-45.0); ABG PH 7.416 (7.350-7.450); ABG PO2 78.1 mmHg (83.0-108.0); ABG TOTAL HEMOGLOBIN 13.5 G/dL (12.0-16.0); COHb 0.3 % (0.5-1.5); MetHb 0.4 % (0.0-1.5); O2Hb 94.5 % (94.0-97.0); SITE, ABG LEFT RADIAL
[2024-09-02 16:44] VITALS: BP 115/75; TEMP 98.6; O2SAT 98
== END 2024-09-02 16:15 | disposition home or self-care (01) ==
LOC: ER 14:02
DX: T59.811A Toxic effect of smoke, accidental (unintentional), initial encounter (principal); R05.9 Cough, unspecified; R06.02 Shortness of breath; R07.9 Chest pain, unspecified; R51.9 Headache, unspecified; E11.9 Type 2 diabetes mellitus without complications; I10 Essential (primary) hypertension; Z85.42 Personal history of malignant neoplasm of other parts of uterus; Z88.2 Allergy status to sulfonamides; Z90.722 Acquired absence of ovaries, bilateral; Z60.2 Problems related to living alone; Y92.89 Other specified places as the place of occurrence of the external cause
CPT/HCPCS: 36415; 71045-TC; 80048-TC; 80076-TC; 82374-TC; 83880; 84484-TC; 85025-TC; 85730-TC

== ENCOUNTER 2024-09-20 11:48 | Emergency (ER) | payer MEDICAID ==
[~2024-09-20] VITALS: Ht 157.5 cm; Wt 62.6 kg
[2024-09-20] MEDS ORDERED: ALBU18HF2 INH (14:23)
[2024-09-20] MEDS ORDERED: ACETAMINOPHEN 325 MG TABLET ONE (14:31)
[2024-09-20] MEDS: ACETAMINOPHEN 325 MG TABLET PO ONE (14:37)
[2024-09-20 15:02] VITALS: BP 140/60; TEMP 99.4; O2SAT 97
== END 2024-09-20 14:48 | disposition home or self-care (01) ==
LOC: ER 11:50
DX: R50.9 Fever, unspecified (principal); R05.9 Cough, unspecified; R06.02 Shortness of breath; E11.9 Type 2 diabetes mellitus without complications; I10 Essential (primary) hypertension; Z88.2 Allergy status to sulfonamides; Z90.722 Acquired absence of ovaries, bilateral; Z20.822 Contact with and (suspected) exposure to COVID-19
CPT/HCPCS: 71045-TC

== ENCOUNTER 2025-08-06 20:19 | Inpatient (IN) | payer MEDICAID ==
[~2025-08-06] VITALS: Ht 157.5 cm; Wt 66.2 kg
[~2025-08-06 20:19] MED LIST changes: +ALBU18HF2 INH
[2025-08-06 21:03] LABS: PLATELET COUNT (AUTO) 293 K/uL (150-450); RED BLOOD CELL COUNT(AUTO) 4.80 MIL/uL (4.0-5.2); RED CELL DISTRIBUTION WIDTH 15.0 % (11.5-15.0); WHITE BLOOD COUNT (AUTO) 10.8 K/uL (4.3-11.0)
[2025-08-06] MEDS ORDERED: CEFTRIAXONE 1GM BAG (ER ONLY) 50 ML IV ONE (21:06)
[2025-08-06] MEDS: IV NS 0.9% 1,000 ML BAG IV ONE (21:10)
[2025-08-06] MEDS: CEFTRIAXONE 1 G in IV D5W 50 ML IV ONE (21:10)
[2025-08-06 21:14] LABS: CALCIUM, SERUM 9.1 mg/dL (8.5-10.1); CREATININE 1.0 mg/dL (0.6-1.3); SODIUM SERUM 143 mmol/L (136-145); UREA NITROGEN, BLOOD 20 mg/dL (7-18)
[2025-08-06 21:20] LABS: LACTIC ACID 1.1 mmol/L (0.4-2.0)
[2025-08-06 21:21] LABS: INR 1.04 (0.91-1.10)
[2025-08-06 21:27] LABS: ASPARTATE AMINOTRANSFERASE 18 U/L (15-37); TOTAL PROTEIN, SERUM 6.5 g/dL (6.4-8.2)
[2025-08-06 21:45] LABS: APPEARANCE,URINE SLIGHTLY CLOUDY (CLEAR); BLOOD, URINE 1+ Ery/uL (NEGATIVE); LEUKOCYTE ESTERASE ,URINE 2+ (NEGATIVE); NITRITE, URINE POSITIVE (NEGATIVE); UGLUCOSE NEGATIVE (NEGATIVE)
[2025-08-06 21:57] LABS: ADD URINE CULTURE YES; SQUAMOUS EPITHELIAL CELL,UR Few /HPF (None Seen)
[2025-08-06] MEDS: CEFTRIAXONE 1GM BAG (ER ONLY) 1 GM/50 ML PIGGYBACK IV ONE (22:29)
[2025-08-06] MEDS ORDERED: NITROFURANTOIN/MONOHYDRATE MACROCRYSTALS 100 MG CAPSULE ONE (22:41)
[2025-08-06] MEDS ORDERED: NITR100C6 PO (22:42)
[2025-08-06] MEDS: NITROFURANTOIN/MONOHYDRATE MACROCRYSTALS 100 MG CAPSULE PO ONE (22:46)
[2025-08-06] MEDS ORDERED: MEROPENEM 1 G VIAL IV ONE (22:57)
[2025-08-06] MEDS: KETOROLAC TROMETHAMINE 15 MG/ML VIAL IV ONE (23:05)
[2025-08-06] MEDS: MEROPENEM 1 G in IV NS 0.9% 100 ML IV SCH (23:05)
[2025-08-06] MEDS ORDERED: ONDANSETRON HCL/PF 4 MG/2 ML VIAL ONE (23:29)
[2025-08-06] MEDS: ONDANSETRON HCL/PF 4 MG/2 ML VIAL IV ONE (23:32)
[2025-08-07] MEDS ORDERED: MAG HYDROX/AL HYDROX/SIMETH 30 ML UDC PO PRN (00:30)
[2025-08-07] MEDS ORDERED: HYDROCODONE/APAP 10/325MG TABLET PO PRN (00:30)
[2025-08-07] MEDS ORDERED: MAGNESIUM HYDROXIDE 30 ML UDC PO PRN (00:30)
[2025-08-07] MEDS ORDERED: HYDROCODONE/APAP 5/325MG TABLET PO PRN (00:30)
[2025-08-07] MEDS ORDERED: TEMAZEPAM 15 MG CAPSULE PO PRN (00:30)
[2025-08-07] MEDS ORDERED: Z GUARD REMEDY 4 OZ OINT TP PRN (00:30)
[2025-08-07 01:05] VITALS: BP 101/66; TEMP 98.6; O2SAT 95
[2025-08-07] MEDS: IV NS 0.9% 1,000 ML IV PRN (01:26)
[2025-08-07 01:50] VITALS: BP 101/66; TEMP 98.6; O2SAT 95
[2025-08-07] MEDS ORDERED: MEROPENEM 1 G in IV NS 0.9% 100 ML IV ONE ×2 (05:00→05:05)
[2025-08-07] MEDS: MEROPENEM 1 G in IV NS 0.9% 100 ML IV ONE (06:39)
[2025-08-07] MEDS: PANTOPRAZOLE 40 MG TABLET.DR PO SCH (07:55)
[2025-08-07 08:00] VITALS: BP 93/79; TEMP 98.6; O2SAT 100
[2025-08-07] MEDS ORDERED: CICL6.6S19 TP (08:15)
[2025-08-07] MEDS ORDERED: LEVO50TA8 PO (08:15)
[2025-08-07] MEDS ORDERED: METF-440 PO (08:15)
[2025-08-07] MEDS ORDERED: TRIA80CR12 TP (08:15)
[2025-08-07] MEDS: ONDANSETRON HCL/PF 4 MG/2 ML VIAL IVP PRN (12:35)
[2025-08-07 16:08] VITALS: BP 116/69; TEMP 98.6; O2SAT 97
[2025-08-07] MEDS: MEROPENEM 500 MG in IV NS 0.9% 50 ML IV SCH (17:07)
[2025-08-07 20:00] VITALS: BP 97/60; TEMP 99.7; O2SAT 97
[2025-08-08 07:30] VITALS: BP 94/65; TEMP 97.6; O2SAT 98
[2025-08-08 08:06] LABS: CALCIUM, SERUM 8.7 mg/dL (8.5-10.1); CREATININE 1.0 mg/dL (0.6-1.3); PHOSPHORUS 3.5 mg/dL (2.5-4.9); SODIUM SERUM 144.0 mmol/L (136-145); UREA NITROGEN, BLOOD 14.0 mg/dL (7-18)
[2025-08-08 09:23] LABS: PLATELET COUNT (AUTO) 211 K/uL (150-450); RED BLOOD CELL COUNT(AUTO) 4.22 MIL/uL (4.0-5.2); RED CELL DISTRIBUTION WIDTH 15.3 % (11.5-15.0); WHITE BLOOD COUNT (AUTO) 6.9 K/uL (4.3-11.0)
[2025-08-08] MEDS: LEVOTHYROXINE SODIUM 50 MCG TABLET PO ONE (09:27)
[2025-08-08 16:00] VITALS: BP 106/73; TEMP 97.7; O2SAT 100
[2025-08-08] MEDS ORDERED: CICLOPIROX XX SCH (21:00)
[2025-08-08] MEDS ORDERED: LEVOTHYROXINE SODIUM 50 MCG TABLET PO SCH (21:00)
[2025-08-08] MEDS: ATORVASTATIN 10 MG TABLET PO SCH (21:20)
[2025-08-08 21:47] VITALS: BP 105/62; TEMP 97.2; O2SAT 100
[2025-08-09] MEDS: LEVOTHYROXINE SODIUM 50 MCG TABLET PO SCH (05:17)
[2025-08-09] MEDS: METFORMIN 500 MG TABLET PO SCH (07:50)
[2025-08-09] MEDS: TRIAMCINOLONE ACETONIDE 0.1% CR 15 GM TUBE TP SCH (09:34)
[2025-08-09] MEDS ORDERED: PHENAZOPYRIDINE HCL 200 MG TABLET PO PRN (12:00)
[2025-08-09] MEDS ORDERED: PHEN-895 PO (14:09)
[2025-08-09] MEDS ORDERED: AMOX-430 PO (14:09)
[2025-08-09] MEDS: ACETAMINOPHEN 325 MG TABLET PO PRN (14:34)
[2025-08-09] MEDS ORDERED: POLY17PO4 PO (15:37)
[2025-08-09] MEDS ORDERED: NYST15PO4 TP (15:37)
== END 2025-08-09 16:25 | disposition home or self-care (01) | DRG 463 ==
LOC: ER 20:22 → MED 08-07 01:06
PROVIDERS: ADMIT Nurse Practitioner Acute Care; ATTEND Student in an Organized Health Care Education/Training Program
DX: N10 Acute pyelonephritis (principal); E11.9 Type 2 diabetes mellitus without complications; G35.D Multiple sclerosis, unspecified; B96.20 Unspecified Escherichia coli [E. coli] as the cause of diseases classified elsewhere; I48.91 Unspecified atrial fibrillation; E78.5 Hyperlipidemia, unspecified; I10 Essential (primary) hypertension; R32 Unspecified urinary incontinence; Z86.73 Personal history of transient ischemic attack (TIA), and cerebral infarction without residual deficits; Z88.2 Allergy status to sulfonamides; Z87.442 Personal history of urinary calculi; Z87.440 Personal history of urinary (tract) infections; Z96.641 Presence of right artificial hip joint; Z90.710 Acquired absence of both cervix and uterus; Z79.84 Long term (current) use of oral hypoglycemic drugs; Z20.822 Contact with and (suspected) exposure to COVID-19; R53.1 Weakness; Z16.12 Extended spectrum beta lactamase (ESBL) resistance
CPT/HCPCS: 36415; 71045-TC; 80048-TC; 80076-TC; 81001; 83605-TC; 83735-TC; 83880; 84100-TC; 84484-TC; 85025-TC; 85730-TC; 87040-TC; 87086-TC; 87186-TC; 97110-TC; 97116-TC; 97530-TC; A4223; G0378; J0696; J1885; J2185; J2405; J7030; J7060